=== PATIENT | female | born 1985 | race Two or more races ===

== ENCOUNTER 2019-07-27 11:29 | Emergency (ER) | payer MEDICAID ==
[~2019-07-27] VITALS: Ht 160 cm; Wt 70.3 kg
[2019-07-27 11:47] VITALS: BP 115/66
[2019-07-27 12:42] LABS: Urine Bacteria NONE SEEN /hpf (None Seen); Urine Blood 1+ /uL (Negative); Urine Mucus FEW (None Seen); Urine Specific Gravity 1.018 (1.001-1.035); Urine WBC 1 /hpf (0 - 5)
[2019-07-27 13:19] LABS: Basophils # (auto) 0 uL; Basophils % (auto) 0.5 % (0.0-2.0); Eosinophils # (auto) 0.4 uL; Eosinophils % (auto) 3.8 % (0.0-7.0); Hematocrit 40.8 % (36.0-46.0); Hemoglobin 13.4 g/dL (12.2-16.2); Lymphocytes # (auto) 1.4 uL; Lymphocytes % (auto) 14.3 % (10.0-50.0); Mean Corpuscular Hemoglobin 28.6 pg (28.0-32.0); Mean Corpuscular Hgb Conc. 32.9 g/dL (32.0-36.0); Monocytes # (auto) 0.4 uL; Monocytes % (auto) 4.3 % (0.0-12.0); Neutrophils # (auto) 7.5 uL; Neutrophils % (auto) 77.1 % (37.0-80.0); Platelet Count (auto) 258 10^3/uL (140-450); Red Blood Cells 4.69 10^6/uL (4.0-5.20); Red Cell Distribution Width 13.8 % (11.8-14.3); White Blood Cell 9.7 10^3/uL (4.4-10.8)
[2019-07-27 13:37] LABS: Albumin 3.8 g/dL (3.4-5.0); Calcium 8.6 mg/dL (8.5-10.1); Potassium 4.2 mmol/L (3.5-5.1)
[2019-07-27 13:40] LABS: BUN/Creatinine Ratio 8.7; Bilirubin, Total 0.3 mg/dL (0.2-1.0); Total Protein 7.6 g/dL (6.4-8.2)
[2019-07-27] MEDS ORDERED: MORPHINE SULFATE 4 MG/ML SYR/VIAL IV ONE (15:00)
[2019-07-27] MEDS ORDERED: ONDANSETRON HCL 4 MG/2 ML VIAL IV ONE (15:00)
== END 2019-07-27 15:34 | disposition home or self-care (01) ==
LOC: ER 11:29
DX: N35.92 Unspecified urethral stricture, female (principal)
CPT/HCPCS: 36415; 74176; 80053; 81001; 81025; 85025; 96374; 96375; 99284; J2270; J2405

== ENCOUNTER 2020-02-13 16:57 | Emergency (ER) | payer MEDICAID, OTHER ==
[~2020-02-13] VITALS: Ht 167.6 cm; Wt 77.1 kg
[2020-02-13 20:34] VITALS: BP 118/71
[2020-02-13] MEDS ORDERED: methylPREDNISolone SOD SUCC 125 MG/2 ML VL IM ONE (20:45)
[2020-02-13] MEDS ORDERED: KETOROLAC TROMETH 60MG/2ML VIAL IM ONE (20:45)
== END 2020-02-13 20:55 | disposition home or self-care (01) ==
LOC: ER 16:57
DX: M19.072 Primary osteoarthritis, left ankle and foot (principal); M19.071 Primary osteoarthritis, right ankle and foot; F41.9 Anxiety disorder, unspecified; N39.0 Urinary tract infection, site not specified
CPT/HCPCS: 96372; 99284; J1885; J2930

== ENCOUNTER 2020-04-13 18:40 | Emergency (ER) | payer OTHER ==
[~2020-04-13] VITALS: Ht 167.6 cm; Wt 68.0 kg
[2020-04-13 18:59] VITALS: BP 115/78
[2020-04-13] MEDS ORDERED: KETOROLAC TROMETH 60MG/2ML VIAL IM ONE (20:30)
[2020-04-13] MEDS ORDERED: SODIUM CHLORIDE 0.9% 1,000 ML IV ONE (21:00)
[2020-04-13 22:42] LABS: Urine Bacteria NONE SEEN /hpf (None Seen); Urine Blood 2+ /uL (Negative); Urine Mucus FEW (None Seen); Urine WBC 3 /hpf (0 - 5)
== END 2020-04-13 23:03 | disposition home or self-care (01) ==
LOC: ER 18:40
DX: F43.9 Reaction to severe stress, unspecified (principal); E86.0 Dehydration; Z56.3 Stressful work schedule
CPT/HCPCS: 81001; 96360; 96372; 99283; J1885; J7030

== ENCOUNTER 2021-01-11 00:22 | Emergency (ER) | payer OTHER ==
[~2021-01-11] VITALS: Ht 165.1 cm; Wt 80.3 kg
[2021-01-11 01:40] LABS: Basophils # (auto) 0.1 10 ^3/uL (0-0.2); Basophils % (auto) 0.6 % (0.0-2.0); Eosinophils # (auto) 0.4 10 ^3/uL (0-0.8); Hematocrit 36.3 % (36.0-46.0); Hemoglobin 11.9 g/dL (12.2-16.2); Lymphocytes # (auto) 2.2 10 ^3/uL (0.4-5.4); Lymphocytes % (auto) 25.7 % (10.0-50.0); Mean Corpuscular Hemoglobin 28.2 pg (28.0-32.0); Mean Corpuscular Hgb Conc. 32.9 g/dL (32.0-36.0); Mean Corpuscular Volume 85.7 fL (80.0-100.0); Monocytes # (auto) 0.5 10 ^3/uL (0-1.3); Monocytes % (auto) 5.2 % (0.0-12.0); Neutrophils # (auto) 5.5 10 ^3/uL (1.6-8.6); Neutrophils % (auto) 63.5 % (37.0-80.0); Platelet Count (auto) 225 10^3/uL (140-450); Red Blood Cells 4.23 10^6/uL (4.0-5.20); Red Cell Distribution Width 14.4 % (11.8-14.3); White Blood Cell 8.7 10^3/uL (4.4-10.8)
[2021-01-11 01:58] LABS: Alanine Aminotransferase 12 U/L (13-56); Albumin 3.4 g/dL (3.4-5.0); Anion Gap 6 (5-15); Aspartate Aminotransferase 9 U/L (15-37); BUN/Creatinine Ratio 12.8; Blood Urea Nitrogen 10 mg/dL (7-18); Calcium 7.7 mg/dL (8.5-10.1); Carbon Dioxide 25 mmol/L (21-32); Chloride 111 mmol/L (98-107); GFR African American 107 mL/min; GFR Non-African American 89 mL/min; Glucose 83 mg/dL (74-106); Lipase 128 U/L (73-393); Magnesium 2.1 mg/dL (1.6-2.6); Potassium 3.7 mmol/L (3.5-5.1); Sodium 142 mmol/L (136-145)
[2021-01-11 02:03] LABS: Alkaline Phosphatase 58 U/L (45-117); Bilirubin, Total 0.3 mg/dL (0.2-1.0); Total Protein 6.5 g/dL (6.4-8.2)
[2021-01-11] MEDS ORDERED: MORPHINE SULFATE 4 MG/ML SYR/VIAL IV ONE (02:15)
[2021-01-11] MEDS ORDERED: ONDANSETRON HCL 4 MG/2 ML VIAL IV ONE (02:15)
[2021-01-11 02:34] LABS: INR 1.06 (0.9-1.15); Partial Thromboplastin Time 25.1 sec (23.0-31.2)
[2021-01-11 04:04] LABS: Urine Bacteria FEW /hpf (None Seen); Urine Blood 1+ /uL (Negative); Urine Specific Gravity 1.013 (1.001-1.035); Urine WBC 3 /hpf (0 - 5)
[2021-01-11] MEDS ORDERED: HYDROcodone-ACET 10/325MG TAB PO ONE (05:00)
[2021-01-11 05:23] VITALS: BP 107/53
== END 2021-01-11 05:24 | disposition home or self-care (01) ==
LOC: EDBD 00:22 → ER 00:24
DX: K80.20 Calculus of gallbladder without cholecystitis without obstruction (principal); N83.201 Unspecified ovarian cyst, right side; M32.9 Systemic lupus erythematosus, unspecified
CPT/HCPCS: 36415; 74176; 76830; 76856; 80053; 81001; 83605; 83690; 83735; 84484; 84702; 85025; 85610; 85730; 87086; 96374; 96375; 99285; J2270; J2405

== ENCOUNTER 2021-04-15 16:57 | Emergency (ER) | payer OTHER ==
[~2021-04-15] VITALS: Ht 167.6 cm; Wt 77.1 kg
[2021-04-15 21:36] LABS: Basophils # (auto) 0 10 ^3/uL (0-0.2); Basophils % (auto) 0.2 % (0.0-2.0); Eosinophils # (auto) 0.3 10 ^3/uL (0-0.8); Eosinophils % (auto) 1.9 % (0.0-7.0); Hematocrit 37.3 % (36.0-46.0); Hemoglobin 12.5 g/dL (12.2-16.2); Lymphocytes # (auto) 1.8 10 ^3/uL (0.4-5.4); Lymphocytes % (auto) 12.2 % (10.0-50.0); Mean Corpuscular Hemoglobin 28.4 pg (28.0-32.0); Mean Corpuscular Hgb Conc. 33.5 g/dL (32.0-36.0); Mean Corpuscular Volume 84.8 fL (80.0-100.0); Monocytes # (auto) 0.7 10 ^3/uL (0-1.3); Monocytes % (auto) 4.5 % (0.0-12.0); Neutrophils % (auto) 81.2 % (37.0-80.0); Red Blood Cells 4.39 10^6/uL (4.0-5.20); Red Cell Distribution Width 13.6 % (11.8-14.3); White Blood Cell 14.7 10^3/uL (4.4-10.8)
[2021-04-15 21:44] LABS: Albumin 3.9 g/dL (3.4-5.0); Calcium 8.4 mg/dL (8.5-10.1); INR 1.18 (0.9-1.15); Magnesium 2.2 mg/dL (1.6-2.6); Potassium 4.3 mmol/L (3.5-5.1)
[2021-04-15 21:47] LABS: BUN/Creatinine Ratio 15.1; Bilirubin, Total 0.4 mg/dL (0.2-1.0); Total Protein 7.7 g/dL (6.4-8.2)
[2021-04-15] MEDS ORDERED: IOHEXOL 300 MG/ML 100ML BOTTLE IJ ONE (22:18)
[2021-04-16 01:28] LABS: Urine Bacteria NONE SEEN /hpf (None Seen); Urine Blood Negative /uL (Negative); Urine Specific Gravity 1.015 (1.001-1.035); Urine WBC 3 /hpf (0 - 5)
[2021-04-16] MEDS ORDERED: fentaNYL CITRATE 100 MCG/2 ML VL IV ONE (01:30)
[2021-04-16] MEDS ORDERED: ONDANSETRON HCL 4 MG/2 ML VIAL IV ONE (01:30)
[2021-04-16] MEDS: PIPERACILLIN-TAZOB 3.375GM 100 ML IV ONE ×2 (02:30→03:03)
[2021-04-16 02:40] VITALS: BP 140/85
== END 2021-04-16 03:10 | disposition left against medical advice (07) ==
LOC: ER 16:57 → EDBD 16:57 → ER 04-16 03:10
DX: N73.9 Female pelvic inflammatory disease, unspecified (principal); Z20.822 Contact with and (suspected) exposure to COVID-19
CPT/HCPCS: 36415; 74177; 80053; 81001; 83605; 83735; 84702; 85025; 85610; 87426; 96374; 96375; 99285; J2405; J2543; J3010; Q9967

== ENCOUNTER 2021-05-19 04:07 | Emergency (ER) | payer OTHER ==
[~2021-05-19] VITALS: Ht 172.7 cm; Wt 77.1 kg
[2021-05-19 05:35] LABS: Basophils # (auto) 0.1 10 ^3/uL (0-0.2); Basophils % (auto) 0.8 % (0.0-2.0); Eosinophils # (auto) 0.1 10 ^3/uL (0-0.8); Eosinophils % (auto) 1.2 % (0.0-7.0); Hematocrit 36.2 % (36.0-46.0); Hemoglobin 11.9 g/dL (12.2-16.2); Mean Corpuscular Hemoglobin 27.5 pg (28.0-32.0); Mean Corpuscular Volume 83.3 fL (80.0-100.0); Monocytes # (auto) 0.4 10 ^3/uL (0-1.3); Monocytes % (auto) 5.3 % (0.0-12.0); Neutrophils # (auto) 6.2 10 ^3/uL (1.6-8.6); Neutrophils % (auto) 79.7 % (37.0-80.0); Red Blood Cells 4.34 10^6/uL (4.0-5.20); Red Cell Distribution Width 13.8 % (11.8-14.3); White Blood Cell 7.7 10^3/uL (4.4-10.8)
[2021-05-19 05:49] LABS: Urine Bacteria FEW /hpf (None Seen); Urine Blood Negative /uL (Negative); Urine Specific Gravity 1.013 (1.001-1.035); Urine WBC 8 /hpf (0 - 5)
[2021-05-19 05:53] LABS: Albumin 2.9 g/dL (3.4-5.0); Amylase 55 U/L (25-115); Anion Gap 5 (5-15); Blood Urea Nitrogen 6 mg/dL (7-18); Calcium 7.9 mg/dL (8.5-10.1); Carbon Dioxide 23 mmol/L (21-32); Chloride 113 mmol/L (98-107); Glucose 87 mg/dL (74-106); Lipase 141 U/L (73-393); Potassium 3.9 mmol/L (3.5-5.1); Sodium 141 mmol/L (136-145)
[2021-05-19 05:58] LABS: Alanine Aminotransferase 71 U/L (13-56); Alkaline Phosphatase 59 U/L (45-117); Aspartate Aminotransferase 43 U/L (15-37); BUN/Creatinine Ratio 9.5; Bilirubin, Total 0.4 mg/dL (0.2-1.0); GFR African American 138 mL/min; GFR Non-African American 114 mL/min; Total Protein 6.6 g/dL (6.4-8.2)
[2021-05-19 06:22] VITALS: BP 95/62
== END 2021-05-19 10:04 | disposition home or self-care (01) ==
LOC: ER 04:07 → EDBD 04:07 → ER 09:58
DX: N80.9 Endometriosis, unspecified (principal); R10.84 Generalized abdominal pain; Z20.822 Contact with and (suspected) exposure to COVID-19
CPT/HCPCS: 36415; 74176; 80053; 81001; 82150; 83605; 83690; 84484; 85025; 87040; 87426

== ENCOUNTER 2023-11-25 14:53 | Inpatient (IN) | payer OTHER ==
[~2023-11-25] VITALS: Ht 170.2 cm; Wt 86.0 kg
[2023-11-25 15:55] LABS: Urine Bacteria NONE SEEN /hpf (None Seen); Urine Blood 3+ /uL (Negative); Urine Clarity Clear (Clear); Urine Color PINK (Yellow); Urine Mucus FEW (None Seen); Urine Protein, UAD 1+ (Negative); Urine Specific Gravity 1.016 (1.001-1.035); Urine Urobilinogen Normal (Negative); Urine WBC 128 /hpf (0 - 5); Urine pH 5.5 (5.0-8.0)
[2023-11-25 16:39] LABS: Basophils # (auto) 0 10 ^3/uL (0-0.2); Basophils % (auto) 0.4 % (0.0-2.0); Eosinophils # (auto) 0.3 10 ^3/uL (0-0.8); Eosinophils % (auto) 3.3 % (0.0-7.0); Hematocrit 34.5 % (36.0-46.0); Hemoglobin 10.9 g/dL (12.2-16.2); Lymphocytes # (auto) 1.6 10 ^3/uL (0.4-5.4); Lymphocytes % (auto) 16.3 % (10.0-50.0); Mean Corpuscular Hemoglobin 25.9 pg (28.0-32.0); Mean Corpuscular Hgb Conc. 31.7 g/dL (32.0-36.0); Mean Corpuscular Volume 81.6 fL (80.0-100.0); Monocytes # (auto) 0.6 10 ^3/uL (0-1.3); Monocytes % (auto) 6.2 % (0.0-12.0); Neutrophils # (auto) 7.4 10 ^3/uL (1.6-8.6); Neutrophils % (auto) 73.8 % (37.0-80.0); Red Blood Cells 4.23 10^6/uL (4.0-5.20); Red Cell Distribution Width 15.4 % (11.8-14.3)
[2023-11-25 16:56] LABS: Alanine Aminotransferase 13 U/L (7-40); Albumin 4.5 g/dL (3.2-4.8); Alkaline Phosphatase 96 U/L (46-116); Anion Gap 8 (5-15); Aspartate Aminotransferase 18 U/L (13-40); BUN/Creatinine Ratio 9.3 (10.0-20.0); Bilirubin, Total 0.4 mg/dL (0.2-1.0); Blood Urea Nitrogen 15 mg/dL (9-23); Carbon Dioxide 22 mmol/L (20-30); Chloride 107 mmol/L (98-107); Glucose 89 mg/dL (74-106); Potassium 4.3 mmol/L (3.5-5.1); Sodium 137 mmol/L (136-145); Total Protein 7.2 g/dL (5.7-8.2)
[2023-11-25] MEDS ORDERED: cefTRIAXone 1GM/50ML D5W 50 ML IV ONE (19:30)
[2023-11-25] MEDS ORDERED: ONDANSETRON HCL 4 MG/2 ML VIAL IV PRN (20:45)
[2023-11-26] VITALS (8 sets, daily range): BP systolic 111–133; BP diastolic 65–87; PULSE 75–87; RESP 16–18; TEMP 97.4–98.2; O2SAT 98–100
[2023-11-26] MEDS: ACETAMINOPHEN 325 MG TAB PO ONE (01:10)
[2023-11-26] MEDS: cefTRIAXone 1GM/50ML D5W 50 ML IV ONE (01:16)
[2023-11-26 06:10] LABS: Basophils # (auto) 0.1 10 ^3/uL (0-0.2); Basophils % (auto) 0.7 % (0.0-2.0); Eosinophils # (auto) 0.3 10 ^3/uL (0-0.8); Eosinophils % (auto) 4.7 % (0.0-7.0); Hematocrit 32.7 % (36.0-46.0); Hemoglobin 10.5 g/dL (12.2-16.2); Lymphocytes # (auto) 2.2 10 ^3/uL (0.4-5.4); Lymphocytes % (auto) 29.3 % (10.0-50.0); Mean Corpuscular Hgb Conc. 32.1 g/dL (32.0-36.0); Monocytes # (auto) 0.6 10 ^3/uL (0-1.3); Monocytes % (auto) 7.8 % (0.0-12.0); Neutrophils # (auto) 4.3 10 ^3/uL (1.6-8.6); Neutrophils % (auto) 57.5 % (37.0-80.0); Nucleated Red Blood Cells % 0.1 %; Red Blood Cells 4.03 10^6/uL (4.0-5.20); Red Cell Distribution Width 15.7 % (11.8-14.3); White Blood Cell 7.4 10^3/uL (4.4-10.8)
[2023-11-26 06:30] LABS: Albumin 4.1 g/dL (3.2-4.8); Alkaline Phosphatase 87 U/L (46-116); Anion Gap 7 (5-15); Aspartate Aminotransferase 15 U/L (13-40); BUN/Creatinine Ratio 9.9 (10.0-20.0); Blood Urea Nitrogen 16 mg/dL (9-23); Carbon Dioxide 22 mmol/L (20-30); Chloride 110 mmol/L (98-107); Glucose 81 mg/dL (74-106); Potassium 3.9 mmol/L (3.5-5.1); Sodium 139 mmol/L (136-145)
[2023-11-26 06:31] LABS: Alanine Aminotransferase < 9 U/L (7-40); Bilirubin, Total 0.5 mg/dL (0.2-1.0); Total Protein 6.5 g/dL (5.7-8.2)
[2023-11-26] MEDS: ACETAMINOPHEN 325 MG TAB PO PRN (11:20)
[2023-11-26] MEDS: cefTRIAXone 1GM/50ML D5W 50 ML IV SCH (14:56)
[2023-11-26] MEDS: TEMAZEPAM 15 MG CAP PO ONE (20:45)
[2023-11-27 05:00] VITALS: BP 115/62; PULSE 85; RESP 17; TEMP 98.5; O2SAT 100
[2023-11-27 05:51] LABS: Basophils # (auto) 0 10 ^3/uL (0-0.2); Basophils % (auto) 0.5 % (0.0-2.0); Eosinophils # (auto) 0.3 10 ^3/uL (0-0.8); Eosinophils % (auto) 5.7 % (0.0-7.0); Hematocrit 30.4 % (36.0-46.0); Hemoglobin 9.9 g/dL (12.2-16.2); Lymphocytes # (auto) 1.6 10 ^3/uL (0.4-5.4); Lymphocytes % (auto) 28.4 % (10.0-50.0); Mean Corpuscular Hemoglobin 26.2 pg (28.0-32.0); Mean Corpuscular Hgb Conc. 32.5 g/dL (32.0-36.0); Mean Corpuscular Volume 80.5 fL (80.0-100.0); Monocytes # (auto) 0.4 10 ^3/uL (0-1.3); Monocytes % (auto) 6.8 % (0.0-12.0); Neutrophils # (auto) 3.3 10 ^3/uL (1.6-8.6); Neutrophils % (auto) 58.6 % (37.0-80.0); Nucleated Red Blood Cells % 0.1 %; Red Blood Cells 3.77 10^6/uL (4.0-5.20); Red Cell Distribution Width 15.3 % (11.8-14.3); White Blood Cell 5.7 10^3/uL (4.4-10.8)
[2023-11-27 06:23] LABS: Albumin 3.9 g/dL (3.2-4.8); Alkaline Phosphatase 79 U/L (46-116); Anion Gap 8 (5-15); Aspartate Aminotransferase 15 U/L (13-40); BUN/Creatinine Ratio 15.3 (10.0-20.0); Bilirubin, Total 0.3 mg/dL (0.2-1.0); Blood Urea Nitrogen 23 mg/dL (9-23); Calcium 8.8 mg/dL (8.5-10.1); Carbon Dioxide 21 mmol/L (20-30); Chloride 111 mmol/L (98-107); Glucose 91 mg/dL (74-106); Potassium 4.2 mmol/L (3.5-5.1); Sodium 140 mmol/L (136-145); Total Protein 6.1 g/dL (5.7-8.2)
[2023-11-27 06:28] LABS: Alanine Aminotransferase < 9 U/L (7-40)
[2023-11-27 08:00] VITALS: BP 130/81; PULSE 74; RESP 18; TEMP 98.4; O2SAT 96
[2023-11-27 08:51] LABS: INR 1.05 (0.9-1.15); Partial Thromboplastin Time 32.6 SEC (24.5-34.5)
[2023-11-27 09:00] VITALS: BP 130/81; PULSE 52; RESP 17; TEMP 98.4; O2SAT 96
[2023-11-27] MEDS: DOCUSATE SOD 100 MG CAP PO PRN (09:09)
[2023-11-27 13:00] VITALS: BP 128/85; PULSE 79; RESP 18; TEMP 98.3; O2SAT 99
[2023-11-27] MEDS: HYDROcodone-ACET 5/325MG TAB PO PRN (13:08)
[2023-11-27 17:00] VITALS: BP_SYST 131; BP_SYST 92; BP_DIAS 51; BP_DIAS 85; PULSE 88; PULSE 89; RESP 16; RESP 18; TEMP 98.9; O2SAT 96; O2SAT 97
[2023-11-27 22:00] VITALS: BP 134/78; PULSE 96; RESP 20; TEMP 97.9; O2SAT 97
[2023-11-28] VITALS (9 sets, daily range): BP systolic 97–137; BP diastolic 70–90; PULSE 68–98; RESP 13–20; TEMP 98–98.8; O2SAT 95–100
[2023-11-28 06:19] LABS: Basophils # (auto) 0 10 ^3/uL (0-0.2); Lymphocytes # (auto) 1.8 10 ^3/uL (0.4-5.4); Monocytes # (auto) 0.4 10 ^3/uL (0-1.3); White Blood Cell 5.6 10^3/uL (4.4-10.8)
[2023-11-28 06:22] LABS: Basophils % (auto) 0.8 % (0.0-2.0); Eosinophils # (auto) 0.3 10 ^3/uL (0-0.8); Hematocrit 31.4 % (36.0-46.0); Hemoglobin 10.1 g/dL (12.2-16.2); Lymphocytes % (auto) 32.5 % (10.0-50.0); Mean Corpuscular Hemoglobin 25.9 pg (28.0-32.0); Mean Corpuscular Hgb Conc. 32.3 g/dL (32.0-36.0); Mean Corpuscular Volume 80.4 fL (80.0-100.0); Monocytes % (auto) 6.9 % (0.0-12.0); Neutrophils % (auto) 53.8 % (37.0-80.0); Red Cell Distribution Width 15.6 % (11.8-14.3)
[2023-11-28 06:31] LABS: Albumin 3.9 g/dL (3.2-4.8); Alkaline Phosphatase 76 U/L (46-116); Anion Gap 5 (5-15); Aspartate Aminotransferase 14 U/L (13-40); Bilirubin, Total 0.4 mg/dL (0.2-1.0); Blood Urea Nitrogen 18 mg/dL (9-23); Calcium 8.8 mg/dL (8.5-10.1); Carbon Dioxide 23 mmol/L (20-30); Chloride 112 mmol/L (98-107); Glucose 88 mg/dL (74-106); Potassium 4.3 mmol/L (3.5-5.1); Sodium 140 mmol/L (136-145); Total Protein 6.3 g/dL (5.7-8.2)
[2023-11-28 06:34] LABS: Alanine Aminotransferase < 9 U/L (7-40)
[2023-11-28] MEDS: FUROSEMIDE 40 MG/4 ML VIAL IV ONE (10:20)
[2023-11-28] MEDS: LIDOCAINE 2%HCL (LOCAL ANESTH.) INJ 20ML MDV ONE (14:26)
[2023-11-28] MEDS: IODIXANOL 320MG/ML 100ML BTL IV ONE ×2 (14:26→14:27)
[2023-11-28] MEDS: cefTRIAXone 1GM/50ML D5W 50 ML IV ONE (14:27)
[2023-11-28] MEDS: MIDAZOLAM HCL 2MG/2ML 2ml VIAL (1mg/ml) ONE (14:27)
[2023-11-28] MEDS: fentaNYL CITRATE 100 MCG/2 ML VL ONE (14:27)
[2023-11-29 05:04] VITALS: BP 143/96; PULSE 92; RESP 22; TEMP 97.9; O2SAT 97
[2023-11-29 06:16] LABS: Basophils # (auto) 0 10 ^3/uL (0-0.2); Basophils % (auto) 0.3 % (0.0-2.0); Eosinophils # (auto) 0.1 10 ^3/uL (0-0.8); Monocytes # (auto) 0.5 10 ^3/uL (0-1.3)
[2023-11-29 06:18] LABS: Eosinophils % (auto) 1.8 % (0.0-7.0); Hematocrit 34.3 % (36.0-46.0); Hemoglobin 11.3 g/dL (12.2-16.2); Lymphocytes # (auto) 1.8 10 ^3/uL (0.4-5.4); Lymphocytes % (auto) 22.9 % (10.0-50.0); Mean Corpuscular Hemoglobin 26.2 pg (28.0-32.0); Mean Corpuscular Hgb Conc. 32.8 g/dL (32.0-36.0); Monocytes % (auto) 6.3 % (0.0-12.0); Neutrophils # (auto) 5.3 10 ^3/uL (1.6-8.6); Neutrophils % (auto) 68.7 % (37.0-80.0); Red Blood Cells 4.29 10^6/uL (4.0-5.20); Red Cell Distribution Width 15.4 % (11.8-14.3); White Blood Cell 7.7 10^3/uL (4.4-10.8)
[2023-11-29 06:26] LABS: Albumin 4.4 g/dL (3.2-4.8); Alkaline Phosphatase 82 U/L (46-116); Anion Gap 7 (5-15); Aspartate Aminotransferase 13 U/L (13-40); BUN/Creatinine Ratio 10.2 (10.0-20.0); Blood Urea Nitrogen 17 mg/dL (9-23); Carbon Dioxide 26 mmol/L (20-30); Chloride 105 mmol/L (98-107); Glucose 89 mg/dL (74-106); Potassium 3.7 mmol/L (3.5-5.1); Sodium 138 mmol/L (136-145)
[2023-11-29 06:27] LABS: Bilirubin, Total 0.5 mg/dL (0.2-1.0); Total Protein 7.3 g/dL (5.7-8.2)
[2023-11-29 06:30] LABS: Alanine Aminotransferase < 9 U/L (7-40)
[2023-11-29 09:00] VITALS: BP 128/86; PULSE 85; RESP 16; TEMP 98.1; O2SAT 98
[2023-11-29 13:00] VITALS: BP 100/66; PULSE 89; RESP 18; TEMP 97.7; O2SAT 98
[2023-11-29 17:00] VITALS: BP 127/90; PULSE 78; RESP 18; TEMP 98.2; O2SAT 92
[2023-11-29 22:56] VITALS: BP 131/89; PULSE 97; RESP 18; TEMP 98.8; O2SAT 99
[2023-11-30 05:00] VITALS: BP 121/77; PULSE 101; RESP 17; TEMP 98.4; O2SAT 97
[2023-11-30 06:21] LABS: Basophils # (auto) 0 10 ^3/uL (0-0.2); Hemoglobin 11.3 g/dL (12.2-16.2); Lymphocytes # (auto) 1.3 10 ^3/uL (0.4-5.4); Mean Corpuscular Hgb Conc. 32.5 g/dL (32.0-36.0); Monocytes # (auto) 0.7 10 ^3/uL (0-1.3); Neutrophils # (auto) 6.4 10 ^3/uL (1.6-8.6)
[2023-11-30 06:24] LABS: Basophils % (auto) 0.5 % (0.0-2.0); Eosinophils # (auto) 0.1 10 ^3/uL (0-0.8); Eosinophils % (auto) 1.7 % (0.0-7.0); Hematocrit 34.6 % (36.0-46.0); Lymphocytes % (auto) 15.5 % (10.0-50.0); Monocytes % (auto) 7.9 % (0.0-12.0); Neutrophils % (auto) 74.4 % (37.0-80.0); Nucleated Red Blood Cells % 0.2 %; Red Blood Cells 4.32 10^6/uL (4.0-5.20); Red Cell Distribution Width 15.4 % (11.8-14.3); White Blood Cell 8.6 10^3/uL (4.4-10.8)
[2023-11-30 06:30] LABS: Anion Gap 8 (5-15); Carbon Dioxide 25 mmol/L (20-30); Chloride 102 mmol/L (98-107); Potassium 3.8 mmol/L (3.5-5.1); Sodium 135 mmol/L (136-145)
[2023-11-30 06:32] LABS: Calcium 9.4 mg/dL (8.7-10.4)
[2023-11-30 06:36] LABS: BUN/Creatinine Ratio 10.7 (10.0-20.0); Blood Urea Nitrogen 16 mg/dL (9-23); Glucose 103 mg/dL (74-106)
[2023-11-30 06:37] LABS: Magnesium 1.5 mg/dL (1.6-2.6)
[2023-11-30 09:00] VITALS: BP 113/77; PULSE 112; RESP 18; TEMP 98; O2SAT 95
[2023-11-30 13:00] VITALS: BP 120/82; PULSE 106; RESP 18; TEMP 98.5; O2SAT 94
[2023-11-30 17:00] VITALS: BP 115/83; PULSE 103; RESP 18; TEMP 97.8; O2SAT 96
[2023-11-30 22:00] VITALS: BP 123/83; PULSE 105; RESP 18; TEMP 97.9; O2SAT 97
[2023-12-01 01:56] LABS: INR 1.07 (0.9-1.15); Partial Thromboplastin Time 33.8 SEC (24.5-34.5); Prothrombin Time 11.2 sec (9.3-11.8)
[2023-12-01 05:00] VITALS: BP 110/76; PULSE 87; RESP 18; TEMP 98; O2SAT 97
[2023-12-01 05:49] LABS: Basophils # (auto) 0 10 ^3/uL (0-0.2); Basophils % (auto) 0.5 % (0.0-2.0); Eosinophils # (auto) 0.3 10 ^3/uL (0-0.8); Hemoglobin 11.1 g/dL (12.2-16.2); Lymphocytes # (auto) 1.6 10 ^3/uL (0.4-5.4); Lymphocytes % (auto) 19.5 % (10.0-50.0); Mean Corpuscular Hemoglobin 26.3 pg (28.0-32.0); Mean Corpuscular Hgb Conc. 32.8 g/dL (32.0-36.0); Mean Corpuscular Volume 80.1 fL (80.0-100.0); Monocytes # (auto) 0.7 10 ^3/uL (0-1.3); Neutrophils # (auto) 5.6 10 ^3/uL (1.6-8.6); Red Blood Cells 4.24 10^6/uL (4.0-5.20); Red Cell Distribution Width 15.4 % (11.8-14.3); White Blood Cell 8.2 10^3/uL (4.4-10.8)
[2023-12-01 05:54] LABS: Alanine Aminotransferase 10 U/L (7-40); Albumin 4.2 g/dL (3.2-4.8); Alkaline Phosphatase 78 U/L (46-116); Anion Gap 6 (5-15); Aspartate Aminotransferase 26 U/L (13-40); BUN/Creatinine Ratio 9.4 (10.0-20.0); Blood Urea Nitrogen 13 mg/dL (9-23); Calcium 9.3 mg/dL (8.5-10.1); Carbon Dioxide 26 mmol/L (20-30); Chloride 105 mmol/L (98-107); Glucose 94 mg/dL (74-106); Potassium 3.7 mmol/L (3.5-5.1); Sodium 137 mmol/L (136-145)
[2023-12-01 05:55] LABS: Bilirubin, Total 0.4 mg/dL (0.2-1.0); Total Protein 6.8 g/dL (5.7-8.2)
[2023-12-01] MEDS: IOHEXOL 300 MG/ML 100ML BOTTLE IJ ONE (07:38)
[2023-12-01 08:00] VITALS: BP 112/83; PULSE 95; RESP 18; TEMP 97.9; O2SAT 96
[2023-12-01 10:54] LABS: Urine Bacteria NONE SEEN /hpf (None Seen); Urine Blood 3+ /uL (Negative); Urine Clarity HAZY (Clear); Urine Color PINK (Yellow); Urine Protein, UAD 2+ (Negative); Urine Specific Gravity 1.019 (1.001-1.035); Urine Urobilinogen Normal (Negative); Urine WBC 343 /hpf (0 - 5); Urine WBC Clumps PRESENT /hpf (None Seen)
[2023-12-01 12:56] VITALS: BP 129/91; PULSE 80; RESP 16; TEMP 98; O2SAT 99
[2023-12-01] MEDS: CIPROFLOXACIN 400MG/200ML 200 ML IV ONE (14:14)
[2023-12-01] MEDS ORDERED: fentaNYL CITRATE 100 MCG/2 ML VL ONE (14:15)
[2023-12-01] MEDS ORDERED: PROPOFOL 10 MG/ML 20 ML IV ONE (14:42)
[2023-12-01] MEDS ORDERED: DexAMETHasone SOD PHOS 10MG/1ML VIAL INJ ONE (14:58)
[2023-12-01] MEDS ORDERED: ONDANSETRON HCL 4 MG/2 ML VIAL ONE (14:58)
[2023-12-01] MEDS ORDERED: ePHEDrine SULFATE 50 MG/ML AMP ONE (15:10)
[2023-12-01] MEDS ORDERED: diphenhdrAMINE HCL 50 MG/1 ML VL ONE (15:33)
[2023-12-01 15:37] VITALS: PULSE 92; RESP 12; O2SAT 98
[2023-12-01] MEDS ORDERED: ONDANSETRON HCL 4 MG/2 ML VIAL IV PRN (15:45)
[2023-12-01] MEDS ORDERED: MEPERIDINE HCL (25 MG/ML) 1ML VIAL IV PRN (15:45)
[2023-12-01] MEDS: HYDROmorphone HCL 2 MG/ML VL/or syr ONE (16:20)
[2023-12-01] MEDS: HYDROmorphone HCL 2 MG/ML VL/or syr IV PRN (16:42)
[2023-12-01 17:05] VITALS: BP 118/80; PULSE 90; RESP 16; TEMP 98; O2SAT 97
[2023-12-01 22:00] VITALS: BP 117/72; PULSE 103; RESP 16; TEMP 97.2; O2SAT 93
[2023-12-02 05:00] VITALS: BP 102/68; PULSE 102; RESP 16; TEMP 97.7; O2SAT 93
[2023-12-02 06:35] LABS: Basophils # (auto) 0 10 ^3/uL (0-0.2); Eosinophils # (auto) 0 10 ^3/uL (0-0.8); Hemoglobin 11.1 g/dL (12.2-16.2); Monocytes # (auto) 0.2 10 ^3/uL (0-1.3); White Blood Cell 9.9 10^3/uL (4.4-10.8)
[2023-12-02 06:38] LABS: Basophils % (auto) 0.1 % (0.0-2.0); Eosinophils % (auto) 0.1 % (0.0-7.0); Hematocrit 33.8 % (36.0-46.0); Lymphocytes # (auto) 0.7 10 ^3/uL (0.4-5.4); Lymphocytes % (auto) 6.6 % (10.0-50.0); Mean Corpuscular Hemoglobin 26.3 pg (28.0-32.0); Mean Corpuscular Hgb Conc. 32.9 g/dL (32.0-36.0); Mean Corpuscular Volume 80.1 fL (80.0-100.0); Monocytes % (auto) 1.5 % (0.0-12.0); Neutrophils % (auto) 91.7 % (37.0-80.0); Nucleated Red Blood Cells % 0.1 %; Red Blood Cells 4.22 10^6/uL (4.0-5.20)
[2023-12-02 06:54] LABS: Alanine Aminotransferase 27 U/L (7-40); Albumin 4.6 g/dL (3.2-4.8); Alkaline Phosphatase 89 U/L (46-116); Anion Gap 9 (5-15); Aspartate Aminotransferase 28 U/L (13-40); BUN/Creatinine Ratio 12.7 (10.0-20.0); Bilirubin, Total 0.4 mg/dL (0.2-1.0); Blood Urea Nitrogen 19 mg/dL (9-23); Calcium 9.5 mg/dL (8.5-10.1); Carbon Dioxide 24 mmol/L (20-30); Chloride 102 mmol/L (98-107); Glucose 126 mg/dL (74-106); Potassium 4.4 mmol/L (3.5-5.1); Sodium 135 mmol/L (136-145); Total Protein 7.5 g/dL (5.7-8.2)
[2023-12-02 07:07] LABS: Immunoglobulin G, Serum 1128 mg/dL (586-1602)
[2023-12-02 08:00] VITALS: PULSE 82; RESP 19; O2SAT 96
[2023-12-02 08:31] VITALS: BP 101/71; PULSE 82; RESP 19; TEMP 98.9; O2SAT 92
[2023-12-02] MEDS ORDERED: CIPR-173 PO (11:23)
[2023-12-02 12:06] VITALS: BP 116/73; PULSE 92; RESP 18; TEMP 97.9; O2SAT 96
[2023-12-02 12:30] VITALS: BP 116/73; PULSE 92; RESP 18; TEMP 97.5; O2SAT 96
[2023-12-02 16:06] LABS: Anti-Centromere B Antibody <0.2 AI (0.0-0.9); Anti-Jo-1 Antibody <0.2 AI (0.0-0.9); Anti-dsDNA Antibody 1 IU/mL (0-9); Antichromatin Antibody <0.2 AI (0.0-0.9); Antiscleroderma-70 Antibody <0.2 AI (0.0-0.9); RNP Antibody 0.2 AI (0.0-0.9); Sjogren's Anti-SS-A Antibody <0.2 AI (0.0-0.9); Sjogren's Anti-SS-B Antibody <0.2 AI (0.0-0.9); Smith Antibody <0.2 AI (0.0-0.9)
== END 2023-12-02 15:48 | disposition home or self-care (01) | DRG 463 ==
LOC: ER 14:53 → OVERFLOW 20:55 → EAST 11-26 02:44
PROVIDERS: ADMIT Internal Medicine Pulmonary Disease; ATTEND Internal Medicine Pulmonary Disease
PROC: 0T9130Z Drainage of Left Kidney with Drainage Device, Percutaneous Approach (ICD-10-PCS; principal; 2023-11-28)
PROC: 0T778DZ Dilation of Left Ureter with Intraluminal Device, Via Natural or Artificial Opening Endoscopic (ICD-10-PCS; 2023-12-01)
PROC: BT1F1ZZ Fluoroscopy of Left Kidney, Ureter and Bladder using Low Osmolar Contrast (ICD-10-PCS; 2023-12-01)
DX: N13.6 Pyonephrosis (principal); N17.9 Acute kidney failure, unspecified; K80.20 Calculus of gallbladder without cholecystitis without obstruction; M32.9 Systemic lupus erythematosus, unspecified; R31.0 Gross hematuria; N18.32 Chronic kidney disease, stage 3b; N83.292 Other ovarian cyst, left side; N83.291 Other ovarian cyst, right side; Z82.49 Family history of ischemic heart disease and other diseases of the circulatory system; N35.92 Unspecified urethral stricture, female
CPT/HCPCS: 36415; 50432; 71045; 74018; 74176; 74181; 74425; 76000; 76775; 76856; 76942; 78707; 80048; 80053; 81001; 82784; 83516; 83735; 84702; 85025; 85610; 85730; 86225; 86235; 86304; 86850; 86900; 86901; 87086; 93005; 99152; G0378; J1100; J2250; J2405; J2704; Q9967

== ENCOUNTER 2024-06-25 07:13 | Emergency (ER) | payer MEDICAID, OTHER ==
[~2024-06-25] VITALS: Ht 165.1 cm; Wt 85.2 kg
[~2024-06-25 07:13] MED LIST: CIPR-173 PO
[2024-06-25 08:04] VITALS: BP 126/86; PULSE 99; RESP 16; O2SAT 98
[2024-06-25 08:53] LABS: Urine Bacteria FEW /hpf (None Seen); Urine Blood 1+ /uL (Negative); Urine Protein, UAD Negative (Negative); Urine Specific Gravity 1.009 (1.001-1.035); Urine Urobilinogen Normal (Negative); Urine WBC 14 /hpf (0 - 5)
[2024-06-25 08:54] LABS: Urine Clarity Hazy (Clear); Urine Color Light-Yellow (Yellow)
[2024-06-25 09:03] VITALS: TEMP 98.5
[2024-06-25] MEDS: cefTRIAXone SOD 1,000 MG VL IM ONE (09:03)
[2024-06-25] MEDS: ACETAMINOPHEN 500 MG TAB PO ONE (09:03)
[2024-06-25] MEDS ORDERED: ACET-1080 PO (09:16)
[2024-06-25] MEDS ORDERED: BACDST PO (09:16)
== END 2024-06-25 09:25 | disposition home or self-care (01) ==
LOC: ER 07:13
DX: N39.0 Urinary tract infection, site not specified (principal); Z32.02 Encounter for pregnancy test, result negative
CPT/HCPCS: 81001; 81025; 96372; 99283; J0696

== ENCOUNTER 2024-08-30 15:34 | Inpatient (IN) | payer MEDICAID ==
[~2024-08-30] VITALS: Ht 162.6 cm; Wt 88.0 kg
[~2024-08-30 15:34] MED LIST changes: +ACET-1080 PO; +BACDST PO
--- NOTE | 2024-08-30 17:30 | ED.PDOC ---
General HPI Comments HPI: Poor Historian. 38-year-old female presents to the emergency department for left flank pain for the last three months that radiates to the left groin area. Patient had a stent placed there approximately nine months ago. She was contacted by her urologist today who told her that your stent that was thought to have been removed in your left kidney is still present and needs to come out. Patient complains of worsening pain on her left flank region. Patient states having painful urination. Past Medcial History: Kidney stones, hypertension not on medications Past Surgical History: Left renal stent placement, hysterectomy REVIEW OF SYSTEMS: CONSTITUTIONAL: Denies acute: fever, diaphoresis, chills, generalized weakness. HEAD: Denies acute: headache, photophobia Eyes: Denies acute: Double vision, vision loss, eye pain, eye discharge. EARS: Denies acute: tinnitus, hearing loss, ear discharge, ear pain, THROAT: Denies acute: sore throat, swelling, difficulty swallowing , pain with swallowing, change in voice. NECK: Denies acute: neck pain, neck swelling, stiff neck. HEART: Denies acute : chest pain, palpitations, LUNGS: Denies acute: SOB, wheezing, cough, hemoptysis ABDOMEN: Denies acute: diarrhea, melena , hematemesis, hematochezia SKIN: Denies acute: rash, redness, lesions, itchiness. EXTREMITIES: Denies acute: calf pain, numbness, tingling, weakness, denies pain in extremity. Denies acute: Low back pain. Neuro: Denies acute: focal neurological deficit, motor or sensory focal neurological deficit, tremors, seizure like activity, confusion, dizziness, change in mental status, loss of bowel or bladder function, cauda equina like symptoms. : Denies acute: hematuria, increase in urinary frequency. PSYCH: Denies acute: hallucination, suicidal ideation, homicidal ideation. FEMALE: Denies acute: abnormal vaginal bleeding, foul odor, unusual discharge. PHYSICAL EXAM: General: no acute distress, awake and alert. Head: normocephalic, atraumatic. Neck: supple, trachea is midline, no swelling. Throat: Normal phonation. Eyes:, no erythema, no purulent discharge, no proptosis, no icterus. Heart: regular rate, regular rhythm, no significant murmur appreciated. Lungs: no apparent respiratory distress, Able to speak in full sentences. No wheezing, no rhonchi, no crackles. No stridors Clear to auscultation bilaterally. Abdomen: Left lower quadrant tender to palpation, non distended, soft, no guarding, no rebound, + bowel sounds. Neuro: Awake, Alert, oriented to name, self, situation, follows commands GCS=15. Speech is normal. Skin: no petechia, no purpura, no cyanosis, non-pale, not jaundice. Lower extremities: --no - Pitting edema no deformity, no focal swelling, no calf TTP. Makes eye contact. moves all four extremities. Face: no apparent facial droop. Left CVA tenderness to percussion Ambulating in the ED independently. . Chief Complaint: Flank Pain Time Seen by MD: 16:03 Primary Care Provider: KWAME Reviewed notes: Nurses Notes, Medications, Allergies Allergies: Coded Allergies: NO KNOWN ALLERGIES (Unverified , 07/27/19) Home Meds Active Scripts Acetaminophen (Tylenol 8 Hour Arthritis) 650 Mg Tab, 650 MG PO TID, #30 TAB Prov:KAYY CHRISTIANSON 06/25/24 Sulfamethoxazole W/Trimethopri (Bactrim Ds Tablet) 1 Tab Tb, 1 TAB PO BID for 7 Days, #14 TAB Prov:KAYY CHRISTIANSON 06/25/24 Ciprofloxacin Hcl (Cipro) 500 Mg Tab, 1 TAB PO BID, #14 TAB Prov:SAMI TERRELL RESIDENT 12/02/23 Information Source: Patient Mode of Arrival: Ambulatory Past Medical History PAST MEDICAL HISTORY: CKF, UTI'S 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 Family History Family History: Reviewed,noncontributory to illness, No family hx of Cancer, No family hx of DM, No family hx of Heart jose, No family hx of HTN Social History Smoker: Non-Smoker Alcohol: Occasionally Drugs: Denies Drug Use Lives In: Home X-Ray, Labs, Meds, VS Vital Signs Date Time Temp Pulse Resp B/P (MAP) Pulse Ox O2 Delivery O2 Flow Rate FiO2 08/30/24 15:45 98.9 120 16 139/81 (100) 99 Lab Test 08/30/24 18:33 08/30/24 17:14 Range/Units White Blood Count Pending Red Blood Count Pending Hemoglobin Pending Hematocrit Pending Mean Corpuscular Volume Pending Mean Corpuscular Hemoglobin Pending Mean Corpuscular Hemoglobin Concent Pending Red Cell Distribution Width Pending Platelet Count Pending Mean Platelet Volume Pending Neutrophils (%) (Auto) Pending Lymphocytes (%) (Auto) Pending Monocytes (%) (Auto) Pending Basophils (%) (Auto) Pending Neutrophils # (Auto) Pending Lymphocytes # (Auto) Pending Monocytes # (Auto) Pending Sodium Level Pending Potassium Level Pending Chloride Level Pending Carbon Dioxide Level Pending Anion Gap Pending Blood Urea Nitrogen Pending Creatinine Pending Glomerular Filtration Rate Calc Pending BUN/Creatinine Ratio Pending Serum Glucose Pending Lactic Acid Level Pending Calcium Level Pending Total Bilirubin Pending Aspartate Amino Transferase (AST) Pending Alanine Aminotransferase (ALT) Pending Alkaline Phosphatase Pending Total Protein Pending Albumin Pending Urine Color Light-yellow Yellow Urine Clarity Clear Clear Urine pH 7.0 5.0-9.0 Urine Specific [place] 1.013 1.001-1.035 Urine Protein Trace H Negative Urine Ketones Negative Negative Urine Blood Trace H Negative /uL Urine Nitrite Negative Negative Urine Bilirubin Negative Negative Urine Urobilinogen Normal Negative mg/dL Urine Leukocyte Esterase 2+ Negative /uL Urine RBC 10 0 - 4 /hpf Urine WBC 6 0 - 5 /hpf Urine Squamous Epithelial Cells Few <5 /hpf Urine Bacteria Few H None Seen /hpf Urine Glucose Normal Normal mg/dL Time of 1ST Reevaluation: 19:50 (The case was discussed with the admitting team (HPI, physical exam, labs and diagnostic tests that were available at the time of disposition, ED course, treatment plan) on the phone. They agreed to admit the patient to their service and assume care of this patient from this point forward. JANN Lopez) Reevaluation 1ST: Unchanged Patient Education/Counseling: Diagnosis, Treatment Family Education/Counseling: No Family Present Departure 1 Departure Time of Disposition: 18:46 Impression: Primary Impression: Hydronephrosis Additional Impressions: UTI (urinary tract infection) Abnormal finding on CT scan Disposition: ADMITTED INPATIENT Admit to: Tele Condition: Guarded Discharged With: Self RUFINO LOVE DO Aug 30, 2024 17:30
[2024-08-30 17:32] LABS: Urine Bacteria FEW /hpf (None Seen); Urine Blood TRACE /uL (Negative); Urine Clarity Clear (Clear); Urine Color Light-Yellow (Yellow); Urine Protein, UAD TRACE (Negative); Urine Specific Gravity 1.013 (1.001-1.035); Urine Urobilinogen Normal (Negative); Urine WBC 6 /hpf (0 - 5)
--- NOTE | 2024-08-30 18:03 | DVH ---
Exam: CT CT AB PEL WO CON-NO ORAL OR IV History: L FLANK PAIN Comparison Study: CT CT AB PEL WO CON-NO ORAL OR IV on DOS: 11/25/23, CT ABD PELVIS WO CONTRAST on DOS : 05/19/21, CT ABD PELVIS WO CONTRAST on DOS: 01/11/21 Technique: Multidetector spiral CT of the abdomen and pelvis was performed from lung bases to pubic symphysis. Imaging was performed without IV contrast. Axial, coronal and sagittal multiplanar reform ats were obtained from the axial data set by the technologist. Radiation dose : Abdomen/Pelvis: CTDIvol 14 mGy, DLP 744.6 mGy*cm. Findings: Evaluation of solid organs is limited due to lack of intravenous contrast use. Lung Bases: No acute or significant lung base finding. Normal heart size. No pleural or pericardial effusion. Liver: The liver is normal in size. No focal lesions. Gallbladder and biliary Tree: Cholelithiasis noted without secondary findings of cholecystitis or reji iary obstruction. Spleen: Unremarkable Pancreas: The pancreas is grossly normal in appearance. Adrenal Glands: Unremarkable Kidneys: Severe left hydronephrosis. Double-J ureteral stent in place. Distal coil does not reach th e bladder and is coiled in the distal ureter. Chronic severe right hydronephrosis with near complete loss of renal cortex. Bladder: Grossly unremarkable for degree of distention. Bowel: The stomach is grossly normal in appearance. Small bowel and colon are normal in caliber and d istribution. The appendix is not visualized; however, no secondary findings of acute appendicitis id entified. Ascites: Absent Lymphadenopathy: No mesenteric, retroperitoneal or periportal lymphadenopathy. Abdominal wall and Mesentery: Unremarkable. Vasculature: The visualized abdominal aorta is normal in size and caliber. Evaluation of abdominal a nd pelvic vessels is limited due to lack of intravenous contrast. Pelvic Organs: Uterus is enlarged with likely fibroids. There is a low-density structure projecting o ff the uterus measuring up to 65 mm which could be a fibroid or other mass. Left ovary appears promin ent measuring up to 38 mm. Musculoskeletal: No aggressive focal bony lesions, acute fractures or dislocation. IMPRESSION: 1. Severe left hydronephrosis. Double-J ureteral stent in place although distal coil does not reach t he bladder. Likely needs to be replaced with a longer double-J ureteral stent. Urology evaluation is recommended. However given that the double-J stent does not reach the bladder it may need to be remov ed and replaced from above. 2. Enlarged heterogeneous uterus. Suspect fibroids. Hypodense lesion projecting off the uterus could be a fibroid or other mass. Prominent left ovary. Recommend further evaluation with pelvic ultrasou nd and/or pelvic MRI with contrast. 3. Cholelithiasis. Chronic severe right hydronephrosis. Radiation optimization: All CT scans at this facility use at least one of these dose optimization aldo hniques: Automated exposure control mA and/or kV adjustment per patient size (includes targeted exams where dose is matched to clinical indication) or iterative reconstruction. HS:Y
[2024-08-30] MEDS ORDERED: ACETAMINOPHEN 325 MG TAB PO PRN (20:00)
[2024-08-30] MEDS ORDERED: HYDROcodone-ACET 5/325MG TAB PO PRN (20:00)
[2024-08-30] MEDS ORDERED: ONDANSETRON HCL 4 MG/2 ML VIAL IV PRN (20:00)
[2024-08-30 20:04] LABS: Basophils # (auto) 0 10 ^3/uL (0-0.2); Basophils % (auto) 0.4 % (0.0-2.0); Eosinophils # (auto) 0.5 10 ^3/uL (0-0.8); Eosinophils % (auto) 6.1 % (0.0-7.0); Hematocrit 39.6 % (36.0-46.0); Hemoglobin 12.4 g/dL (12.2-16.2); Lymphocytes # (auto) 2.1 10 ^3/uL (0.4-5.4); Lymphocytes % (auto) 23.7 % (10.0-50.0); Mean Corpuscular Hemoglobin 23.4 pg (28.0-32.0); Mean Corpuscular Hgb Conc. 31.4 g/dL (32.0-36.0); Mean Corpuscular Volume 74.4 fL (80.0-100.0); Monocytes # (auto) 0.5 10 ^3/uL (0-1.3); Monocytes % (auto) 6.1 % (0.0-12.0); Neutrophils # (auto) 5.6 10 ^3/uL (1.6-8.6); Neutrophils % (auto) 63.7 % (37.0-80.0); Platelet Count (auto) 278 10^3/uL (140-450); Red Blood Cells 5.33 10^6/uL (4.0-5.20); Red Cell Distribution Width 18.2 % (11.8-14.3); White Blood Cell 8.9 10^3/uL (4.4-10.8)
[2024-08-30 20:14] LABS: Alanine Aminotransferase 15 U/L (7-40); Albumin 4.7 g/dL (3.2-4.8); Alkaline Phosphatase 84 U/L (46-116); Anion Gap 7 (5-15); Aspartate Aminotransferase 18 U/L (13-40); BUN/Creatinine Ratio 15.6 (10.0-20.0); Blood Urea Nitrogen 17 mg/dL (9-23); Calcium 10.1 mg/dL (8.7-10.4); Carbon Dioxide 23 mmol/L (20-31); Chloride 107 mmol/L (98-107); Glucose 87 mg/dL (74-106); Potassium 4.5 mmol/L (3.5-5.1); Sodium 137 mmol/L (136-145)
[2024-08-30 20:15] LABS: Bilirubin, Total 0.3 mg/dL (0.2-1.0); Total Protein 7.3 g/dL (5.7-8.2)
--- NOTE | 2024-08-30 23:04 | DVH ---
INDICATION: recommended on CT TECHNIQUE: Multiple real-time grayscale transabdominal sonographic images along with color and duplex Doppler of the uterus and ovaries were obtained. COMPARISON: US PELVIC on DOS: 11/25/23 FINDINGS: The uterus measures 8.52 x 7.86 x 5.87 cm. cm. The endometrial stripe measures 14.1 mm. The re is an intramural mass in the uterine fundus measuring 4.23 x 4.13 x 3.61 cm consistent with a fibr oid. The right ovary not visualized. There is a complex mass in the right adnexa measuring 5.24 x 6.67 x 5.21 cm. Recommend follow-up study. The left ovary measures 4.39 x 4.58 x 4.16 cm. Left ovarian volume is 43.75 cc. There is a heterogen eous mass in the left ovary measuring 3.9 x 2.79 x 3.78 cm. Subsequent color and duplex Doppler interrogation of the ovaries demonstrated symmetric vascular flow to both ovaries, though this does not exclude the possibility of torsion due to the dual blood suppl y. IMPRESSION: 1. A solid uterine fibroid in the fundus measuring 4.23 x 4.13 x 3.61 cm. 2. Heterogeneous mass in the left ovary measuring 3.95 by 2.99 x 3.68 cm recommend follow-up study . 3. Complex mass right adnexa measuring 5.24 x 6.67 x 5.21 cm recommend follow-up study.
[2024-08-31 00:04] LABS: INR 1.08 (0.9-1.15); Prothrombin Time 11.4 sec (9.3-11.8)
[2024-08-31 00:07] VITALS: PULSE 91; RESP 18; O2SAT 98
[2024-08-31] MEDS: SODIUM CHLORIDE 0.9% 1,000 ML IV ONE (00:47)
[2024-08-31] MEDS: cefTRIAXone 1GM/50ML D5W 50 ML IV ONE (00:47)
--- NOTE | 2024-08-31 00:49 | DVHHP2 ---
Admitting Diagnosis: Bilateral hydronephrosis, UTI, ovarian mass History of Present Illness History Source: Patient Exam Limitations: No limitations HPI Mrs. Annabelle Jarquin is a 38-year-old female with a history of kidney stones, hypertension, endometriosis, left kidney stent presents with a chief complaint of left flank pain for the last three months. Patient had a stent placed to her left kidney approximately nine months ago. She was contacted by her urologist who told her the stent that was thought to not be there any longer to left kidney is still present and needs removal, patient reports she was waiting for a referral however steven pain has worsened and she could not wait. Patient complains of worsening pain on her left flank region. Patient admitted for further evaluation. Home Meds Active Scripts Acetaminophen (Tylenol 8 Hour Arthritis) 650 Mg Tab, 650 MG PO TID, #30 TAB Prov:KAYY CHRISTIANSON 06/25/24 Past Medical History Cardiac: HTN Pulmonary: No pertinent Hx Central Nervous System: No pertinent Hx GI: No pertinent Hx Hemotology/Oncology: No pertinent Hx Hepatobiliary: No pertinent Hx Psychiatric: No pertinent Hx Musculoskeletal: No pertinent Hx Rheumotologic: No pertinent Hx Infectious Disease: No peritnent Hx ENT: No pertinent Hx Renal/: UTI, Other (kidney stones with renal stent placement) Endocrine: No pertinent Hx Dermatology: No pertinent Hx Patient Family History: FH: hypertension FH: stomach ulcer Smoker: No Hx (Negative) Alocohol: None Drugs: None Lives with: With family Domestic Violence: Neg Review of Systems Constitutional: No symptom reported Ears, Nose, & Throat: No symptom reported Eyes: No symptom reported Pulmonary/Respiratory: No symptom reported Cardiovascular: No symptom reported Gastrointestinal: No symptom reported Genitourinary: No symptom reported Musculoskeletal: No symptom reported Skin: No symptom reported Psychiatric: No symptom reported Endocrine: No symptom reported Hemotologic/Lymphatic: No symptom reported All Other Systems left flank pain H&P Exam Vital Signs Vital Signs Date Time Temp Pulse Resp B/P (MAP) Pulse Ox O2 Delivery O2 Flow Rate FiO2 08/31/24 00:07 98.5 93 18 116/80 (92) 100 98.5 08/31/24 00:07 Room Air* 0 21 General Appeara: Well developed, Well nourished, Normal Appearance Head Exam: Normal inspection Neck Exam: Normal inspection, Non-tender, Normal alignment Eye Exam: bilateral eye Normal inspection, bilateral eye PERRL, bilateral eye EOMI Ear Exam: bilateral ear Auricle normal Nasal Exam: Normal inspection Mouth: Normal Inspection Pulmonary/Respiratory: Normal inspection, Normal breath sounds, Chest non- tender, Lungs clear Cardiovascular/Chest: Normal inspection, Regular rate, Normal Rhythm Peripheral Pulses: 2+ dorsalis pedis (R), 2+ dorsalis pedis (L), 2+ Radial (R), 2+ Radial (L) Abdominal Exam: Normal bowel sounds, Soft, No tenderness Abdominal Pain Onset Location: Flank (left flank pain) Rectal Exam: Deferred Back Exam: Left CVA tenderness Pelvic Exam: 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: Normal hearing, Normal speech, PERRL Neuro/Mental St: Alert, Oriented Appearance: Appropriate appearance, Appropriate insight Eye contact/ Speech: Cooperative, Good eye contact, Normal speech Thoughts/Psych: Normal thought pattern Skin Exam: Normal inspection, Normal color, Warm/dry Labs/Xrays Labs Test 08/30/24 23:38 08/30/24 18:33 08/30/24 17:14 Range/Units Prothrombin Time 11.4 9.3-11.8 sec Prothrombin Time INR 1.08 0.9-1.15 White Blood Count 8.9 4.4-10.8 10^3/uL Red Blood Count 5.33 H 4.0-5.20 10^6/uL Hemoglobin 12.4 12.2-16.2 g/dL Hematocrit 39.6 36.0-46.0 % Mean Corpuscular Volume 74.4 L 80.0-100.0 fL Mean Corpuscular Hemoglobin 23.4 L 28.0-32.0 pg Mean Corpuscular Hemoglobin Concent 31.4 L 32.0-36.0 g/dL Red Cell Distribution Width 18.2 H 11.8-14.3 % Platelet Count 278 140-450 10^3/uL Mean Platelet Volume 8.3 6.9-10.8 fL Neutrophils (%) (Auto) 63.7 37.0-80.0 % Lymphocytes (%) (Auto) 23.7 10.0-50.0 % Monocytes (%) (Auto) 6.1 0.0-12.0 % Eosinophils (%) (Auto) 6.1 0.0-7.0 % Basophils (%) (Auto) 0.4 0.0-2.0 % Neutrophils # (Auto) 5.6 1.6-8.6 10 ^3/uL Lymphocytes # (Auto) 2.1 0.4-5.4 10 ^3/uL Monocytes # (Auto) 0.5 0-1.3 10 ^3/uL Eosinophils # (Auto) 0.5 0-0.8 10 ^3/uL Basophils # (Auto) 0 0-0.2 10 ^3/uL Nucleated Red Blood Cells 0.0 % Sodium Level 137 136-145 mmol/L Potassium Level 4.5 3.5-5.1 mmol/L Chloride Level 107 98-107 mmol/L Carbon Dioxide Level 23 20-31 mmol/L Anion Gap 7 5-15 Blood Urea Nitrogen 17 9-23 mg/dL Creatinine 1.09 H 0.550-1.02 mg/dL Glomerular Filtration Rate Calc 66 >90 mL/min BUN/Creatinine Ratio 15.6 10.0-20.0 Serum Glucose 87 74-106 mg/dL Lactic Acid Level 1.4 0.4-2.0 mmol/L Calcium Level 10.1 8.7-10.4 mg/dL Total Bilirubin 0.3 0.2-1.0 mg/dL Aspartate Amino Transferase (AST) 18 13-40 U/L Alanine Aminotransferase (ALT) 15 7-40 U/L Alkaline Phosphatase 84 46-116 U/L Total Protein 7.3 5.7-8.2 g/dL Albumin 4.7 3.2-4.8 g/dL Urine Color Light-yellow Yellow Urine Clarity Clear Clear Urine pH 7.0 5.0-9.0 Urine Specific [place] 1.013 1.001-1.035 Urine Protein Trace H Negative Urine Ketones Negative Negative Urine Blood Trace H Negative /uL Urine Nitrite Negative Negative Urine Bilirubin Negative Negative Urine Urobilinogen Normal Negative mg/dL Urine Leukocyte Esterase 2+ Negative /uL Urine RBC 10 0 - 4 /hpf Urine WBC 6 0 - 5 /hpf Urine Squamous Epithelial Cells Few <5 /hpf Urine Bacteria Few H None Seen /hpf Urine Glucose Normal Normal mg/dL Urine Test Negative Negative Assessment/Plan Problem List: (1) UTI (urinary tract infection) (2) Hydronephrosis (3) Abnormal finding on CT scan (4) Ovarian tumor Plan 38 yo female with known history of kidney stones, left renal stent placement, hypertension, and endometriosis presents to the hospital with left flank pain. Patient CT abdomen and pelvis resulted 1. Severe left hydronephrosis. Double-J ureteral stent in place although distal coil does not reach the bladder. Likely needs to be replaced with a longer double-J ureteral stent. Urology evaluation is recommended. However given that the double-J stent does not reach the bladder it may need to be removed and replaced from above. 2. Enlarged heterogeneous uterus. Suspect fibroids. Hypodense lesion projecting off the uterus could be a fibroid or other mass. Prominent left ovary. Recommend further evaluation with pelvic ultrasound and/or pelvic MRI with contrast.3. Cholelithiasis. Chronic severe right hydronephrosis. Patient found to have 1. Bilateral hydronephrosis 2. Ovarian cyst 3. left renal stent 4. 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 All questions were answered. Discussed assessment and care plan with supervising MD. Plan discussed with: Patient, Other Code Visit Code Visit Total Time (mins): 45 Additional Comments Additional Comments Additional Comments Patient is currently in OR, patient will be seen once she is on the floor. FELICIA WEBB Aug 31, 2024 00:49 ALLISON MÉNDEZ MD Aug 31, 2024 15:36
[2024-08-31] MEDS: MORPHINE SULFATE INJ 2 MG/ml SYRG IV PRN (02:23)
[2024-08-31 05:53] LABS: Basophils # (auto) 0 10 ^3/uL (0-0.2); Hemoglobin 11.7 g/dL (12.2-16.2); Monocytes # (auto) 0.6 10 ^3/uL (0-1.3)
[2024-08-31 05:55] LABS: Basophils % (auto) 0.5 % (0.0-2.0); Eosinophils # (auto) 0.5 10 ^3/uL (0-0.8); Eosinophils % (auto) 6.1 % (0.0-7.0); Lymphocytes % (auto) 26.1 % (10.0-50.0); Mean Corpuscular Hemoglobin 23.3 pg (28.0-32.0); Mean Corpuscular Hgb Conc. 31.7 g/dL (32.0-36.0); Mean Corpuscular Volume 73.5 fL (80.0-100.0); Monocytes % (auto) 8.3 % (0.0-12.0); Neutrophils # (auto) 4.5 10 ^3/uL (1.6-8.6); Platelet Count (auto) 263 10^3/uL (140-450); Red Blood Cells 5.03 10^6/uL (4.0-5.20); White Blood Cell 7.7 10^3/uL (4.4-10.8)
[2024-08-31 06:03] LABS: Anion Gap 10 (5-15); Carbon Dioxide 24 mmol/L (20-31); Sodium 142 mmol/L (136-145)
[2024-08-31 06:04] LABS: Calcium 9.5 mg/dL (8.7-10.4)
[2024-08-31 06:09] LABS: BUN/Creatinine Ratio 12.4 (10.0-20.0); Blood Urea Nitrogen 13 mg/dL (9-23); Glucose 93 mg/dL (74-106)
[2024-08-31 06:14] LABS: Chloride 108 mmol/L (98-107)
--- NOTE | 2024-08-31 08:52 | DVHINCON2 ---
Date of service: Aug 31, 2024 Referring Physician hospitalist Reason for Consultation hydronephrosis History of Present Illness History Source: Patient, RN Notes, MD Notes, Old Records Exam Limitations: No limitations HPI 38 yo female known to urology service for left ureteral stricture and non functional right kidney (8%). She had the stent placed 11/2023 and came to the office for removal. Stent was not visualized during cystoscopy and patient felt it may have fallen out. Her repeat imaging (KUB)s showed stent remaining in place. She was pending scheduling for stent removal but began having left flank pain and elected to come to ER for evaluation. Home Meds Active Scripts Acetaminophen (Tylenol 8 Hour Arthritis) 650 Mg Tab, 650 MG PO TID, #30 TAB Prov:KAYY CHRISTIANSON 06/25/24 Past Medical History Others Cystoscopy with left ureteral stent placement in November 2023 s/p Left PNT Patient Family History: FH: hypertension FH: stomach ulcer Review of Systems Genitourinary: Pain (Flank pain) H&P Exam Vital Signs Vital Signs Date Time Temp Pulse Resp B/P (MAP) Pulse Ox O2 Delivery O2 Flow Rate FiO2 08/31/24 05:50 79 19 129/83 (98) 99 08/31/24 02:20 98.6 98.6 08/31/24 00:07 Room Air* 0 21 General Appeara: Mild distress Head Exam: Normal inspection Neck Exam: Normal inspection Pulmonary/Respiratory: Normal inspection Cardiovascular/Chest: Normal inspection Abdominal Pain Onset Location: Flank Back Exam: Left CVA tenderness Labs/Xrays Labs Test 08/31/24 05:30 08/30/24 23:38 08/30/24 18:33 08/30/24 17:14 Range/Units White Blood Count 7.7 4.4-10.8 10^3/uL Red Blood Count 5.03 4.0-5.20 10^6/uL Hemoglobin 11.7 L 12.2-16.2 g/dL Hematocrit 37.0 36.0-46.0 % Mean Corpuscular Volume 73.5 L 80.0-100.0 fL Mean Corpuscular Hemoglobin 23.3 L 28.0-32.0 pg Mean Corpuscular Hemoglobin Concent 31.7 L 32.0-36.0 g/dL Red Cell Distribution Width 18.0 H 11.8-14.3 % Platelet Count 263 140-450 10^3/uL Mean Platelet Volume 8.0 6.9-10.8 fL Neutrophils (%) (Auto) 59.0 37.0-80.0 % Lymphocytes (%) (Auto) 26.1 10.0-50.0 % Monocytes (%) (Auto) 8.3 0.0-12.0 % Eosinophils (%) (Auto) 6.1 0.0-7.0 % Basophils (%) (Auto) 0.5 0.0-2.0 % Neutrophils # (Auto) 4.5 1.6-8.6 10 ^3/uL Lymphocytes # (Auto) 2.0 0.4-5.4 10 ^3/uL Monocytes # (Auto) 0.6 0-1.3 10 ^3/uL Eosinophils # (Auto) 0.5 0-0.8 10 ^3/uL Basophils # (Auto) 0 0-0.2 10 ^3/uL Nucleated Red Blood Cells 0.0 % Sodium Level 142 # 136-145 mmol/L Potassium Level 4.0 3.5-5.1 mmol/L Chloride Level 108 H 98-107 mmol/L Carbon Dioxide Level 24 20-31 mmol/L Anion Gap 10 5-15 Blood Urea Nitrogen 13 9-23 mg/dL Creatinine 1.05 H 0.550-1.02 mg/dL Glomerular Filtration Rate Calc 69 >90 mL/min BUN/Creatinine Ratio 12.4 10.0-20.0 Serum Glucose 93 74-106 mg/dL Calcium Level 9.5 8.7-10.4 mg/dL Prothrombin Time 11.4 9.3-11.8 sec Prothrombin Time INR 1.08 0.9-1.15 Lactic Acid Level 1.4 0.4-2.0 mmol/L Total Bilirubin 0.3 0.2-1.0 mg/dL Aspartate Amino Transferase (AST) 18 13-40 U/L Alanine Aminotransferase (ALT) 15 7-40 U/L Alkaline Phosphatase 84 46-116 U/L Total Protein 7.3 5.7-8.2 g/dL Albumin 4.7 3.2-4.8 g/dL Urine Color Light-yellow Yellow Urine Clarity Clear Clear Urine pH 7.0 5.0-9.0 Urine Specific [place] 1.013 1.001-1.035 Urine Protein Trace H Negative Urine Ketones Negative Negative Urine Blood Trace H Negative /uL Urine Nitrite Negative Negative Urine Bilirubin Negative Negative Urine Urobilinogen Normal Negative mg/dL Urine Leukocyte Esterase 2+ Negative /uL Urine RBC 10 0 - 4 /hpf Urine WBC 6 0 - 5 /hpf Urine Squamous Epithelial Cells Few <5 /hpf Urine Bacteria Few H None Seen /hpf Urine Glucose Normal Normal mg/dL Urine Test Negative Negative PATIENT: CHRIS AARON ACCT: [id number] UNIT: [id number] : 1985 LOC: ER ROOM / BED: / AGE / SEX: 38 / F ADM STATUS: REG ER SERVICE [id number] ORDERING PHYSICIAN: RUFINO LOVE DO PROCEDURE(s): ABPL - CT AB PEL WO CON-NO ORAL OR IV REASON: L FLANK PAIN ORDER NUMBER(s): [id number], ACCESSION NUMBER(s): [id number] Exam: CT CT AB PEL WO CON-NO ORAL OR IV History: L FLANK PAIN Comparison Study: CT CT AB PEL WO CON-NO ORAL OR IV on DOS: 11/25/23, CT ABD PELVIS WO CONTRAST on DOS: 05/19/21, CT ABD PELVIS WO CONTRAST on DOS: 01/11/21 Technique: Multidetector spiral CT of the abdomen and pelvis was performed from lung bases to pubic symphysis. Imaging was performed without IV contrast. Axial, coronal and sagittal multiplanar reformats were obtained from the axial data set by the technologist. Radiation dose : Abdomen/Pelvis: CTDIvol 14 mGy, DLP 744.6 mGy*cm. Findings: Evaluation of solid organs is limited due to lack of intravenous contrast use. Lung Bases: No acute or significant lung base finding. Normal heart size. No pleural or pericardial effusion. Liver: The liver is normal in size. No focal lesions. Gallbladder and biliary Tree: Cholelithiasis noted without secondary findings of cholecystitis or biliary obstruction. Spleen: Unremarkable Pancreas: The pancreas is grossly normal in appearance. Adrenal Glands: Unremarkable Kidneys: Severe left hydronephrosis. Double-J ureteral stent in place. Distal coil does not reach the bladder and is coiled in the distal ureter. Chronic severe right hydronephrosis with near complete loss of renal cortex. Bladder: Grossly unremarkable for degree of distention. Bowel: The stomach is grossly normal in appearance. Small bowel and colon are normal in caliber and distribution. The appendix is not visualized; however, no secondary findings of acute appendicitis identified. Ascites: Absent Lymphadenopathy: No mesenteric, retroperitoneal or periportal lymphadenopathy. Abdominal wall and Mesentery: Unremarkable. Vasculature: The visualized abdominal aorta is normal in size and caliber. Evaluation of abdominal and pelvic vessels is limited due to lack of intravenous contrast. Pelvic Organs: Uterus is enlarged with likely fibroids. There is a low-density structure projecting off the uterus measuring up to 65 mm which could be a fibroid or other mass. Left ovary appears prominent measuring up to 38 mm. Musculoskeletal: No aggressive focal bony lesions, acute fractures or dislocation. IMPRESSION: 1. Severe left hydronephrosis. Double-J ureteral stent in place although distal coil does not reach the bladder. Likely needs to be replaced with a longer double-J ureteral stent. Urology evaluation is recommended. However given that the double-J stent does not reach the bladder it may need to be removed and replaced from above. 2. Enlarged heterogeneous uterus. Suspect fibroids. Hypodense lesion projecting off the uterus could be a fibroid or other mass. Prominent left ovary. Recommend further evaluation with pelvic ultrasound and/or pelvic MRI with contrast. 3. Cholelithiasis. Chronic severe right hydronephrosis. Radiation optimization: All CT scans at this facility use at least one of these dose optimization techniques: Automated exposure control mA and/or kV adjustment per patient size (includes targeted exams where dose is matched to clinical indication) or iterative reconstruction. 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
[2024-08-31 09:04] VITALS: PULSE 70; RESP 18; O2SAT 98
[2024-08-31 09:35] VITALS: BP 123/70; PULSE 76; RESP 20; TEMP 97.8; O2SAT 99
[2024-08-31] MEDS: cefTRIAXone 1GM/50ML D5W 50 ML IV SCH (10:07)
[2024-08-31] MEDS: PANTOPRAZOLE 40 MG/10 ML VIAL INJ IV SCH (10:07)
[2024-08-31 12:33] VITALS: BP 124/81; PULSE 86; RESP 18; TEMP 98.2; O2SAT 98
[2024-08-31] MEDS ORDERED: IOHEXOL 300 MG/ML 100ML BOTTLE IJ ONE (13:20)
[2024-08-31] MEDS ORDERED: GLYCOPYRROLATE 0.2 MG/ML 1ML VIAL ONE (13:31)
[2024-08-31] MEDS ORDERED: PROPOFOL 10 MG/ML 20 ML IV ONE (13:31)
[2024-08-31] MEDS ORDERED: KETOROLAC TROMETH 30 MG/ML 1ML VIAL ONE (13:31)
[2024-08-31] MEDS ORDERED: LIDOCAINE 2% (LOCAL ANESTH.) PF 5ml SDV ONE (13:31)
[2024-08-31] MEDS ORDERED: ONDANSETRON HCL 4 MG/2 ML VIAL ONE (13:31)
[2024-08-31] MEDS ORDERED: DexAMETHasone SOD PHOS 10MG/1ML VIAL INJ ONE (13:31)
[2024-08-31] MEDS: CIPROFLOXACIN 400MG/200ML 200 ML IV ONE (13:32)
--- NOTE | 2024-08-31 14:09 | DVHOP2 ---
Operative Report - 2 Report Details Date: 08/31/24 Preop Diagnosis: Indwelling left ureteral stent, migrated History of left distal ureteral stricture Left flank pain Postop Diagnosis: Same Surgeon: Marla Puente Anesthesiologist: Robert Manley CRNA Anesthesia: General Consent: The patient was informed of the risks and benefits of the procedure. These include but are not limited to complications of anesthesia, postoperative infection, incomplete relief of symptoms, recurrence of symptoms, damage to blood vessels, nerves and tendons, deep venous thrombosis, pulmonary embolism and possible need for repeat surgery in the future. Indications for Surgery: Patient previously underwent left ureteroscopic dilation of ureteral stricture and stent placement in November of 2023. She also is known to have nonfunctioning right kidney unit. Previous attempt to remove the stent was hindered by migrated ureteral stent. She is admitted for flank pain and will undergo ureteroscopic stent removal Name of Procedure Performed Left ureteroscopy with stent removal Procedure Details Procedure Details: Patient was taken to the operating room and underwent general anesthesia. She was placed in dorsal lithotomy position with the area of the genitalia prepped and draped in usual sterile manner. A semi-rigid ureteroscope was used to access the bladder and the left distal ureter. Distal ureteral stricture was identified and dilated with ureteroscope and advanced to identify the distal end of the stent. The stent was grasped with grasping forceps and removed. Bladder was decompressed. Patient was awakened and taken to recovery room in stable condition Specimen: Old ureteral stent Condition Fair Disposition Home MARLA PUENTE MD Aug 31, 2024 14:09
[2024-08-31 14:13] VITALS: TEMP 98.2; O2SAT 100
[2024-08-31] MEDS ORDERED: ONDANSETRON HCL 4 MG/2 ML VIAL IV PRN (14:30)
[2024-08-31] MEDS ORDERED: fentaNYL CITRATE 100 MCG/2 ML VL IV PRN (14:30)
[2024-08-31] MEDS ORDERED: FLUMAZENIL 0.1 MG/ML INJ 10ML MDV IV PRN (14:30)
[2024-08-31] MEDS ORDERED: oxyCODONE HCL 5MG TAB PO PRN (14:30)
[2024-08-31] MEDS ORDERED: ePHEDrine SULFATE 50 MG/ML AMP IV PRN (14:30)
[2024-08-31] MEDS ORDERED: NALOXONE HCL 0.4 MG/ML VIAL IV PRN (14:30)
[2024-08-31] MEDS ORDERED: hydrALAZINE HCL 20 MG/ML VL IV PRN (14:30)
[2024-08-31] MEDS ORDERED: HYDROmorphone HCL 2 MG/ML VL/or syr IV PRN (14:30)
--- NOTE | 2024-08-31 14:47 | DVH ---
C-ARM FLUOROSCOPY: PROCEDURE: R ureteroscopy FLUOROSCOPY TIME: 4 sec
--- NOTE | 2024-08-31 14:47 | DVH ---
C-ARM FLUOROSCOPY: PROCEDURE: R ureteroscopy FLUOROSCOPY TIME: 4 sec
[2024-08-31 16:45] VITALS: BP 131/69; PULSE 64; RESP 12; O2SAT 97
[2024-08-31] MEDS ORDERED: CEPH500C PO (17:00)
[2024-08-31] MEDS ORDERED: HYDR-4902 PO (17:00)
[2024-08-31] MEDS ORDERED: NALO4SPR2 (17:00)
[2024-08-31] MEDS ORDERED: KETAMINE 50mg/ML 1ml syringe IV ONE (23:29)
== END 2024-08-31 23:30 | disposition home or self-care (01) | DRG 466 ==
LOC: ER 15:34 → OVERFLOW 20:53
PROVIDERS: ADMIT Nurse Practitioner Family; ATTEND Nurse Practitioner Family
PROC: 0TP98DZ Removal of Intraluminal Device from Ureter, Via Natural or Artificial Opening Endoscopic (ICD-10-PCS; principal; 2024-08-31 13:32)
DX: T83.593A Infection and inflammatory reaction due to other urinary stents, initial encounter (principal); N13.6 Pyonephrosis; I10 Essential (primary) hypertension; N26.1 Atrophy of kidney (terminal); K80.20 Calculus of gallbladder without cholecystitis without obstruction; N83.202 Unspecified ovarian cyst, left side; Z82.49 Family history of ischemic heart disease and other diseases of the circulatory system
CPT/HCPCS: 36415; 74018; 74176; 76000; 76830; 76856; 80048; 80053; 81001; 81025; 83605; 85025; 85610; 87086; G0378; J1100; J1885; J2003; J2405; J2470; J2704

== ENCOUNTER 2024-11-18 13:27 | Inpatient (IN) | payer MEDICAID ==
[~2024-11-18] VITALS: Ht 170.2 cm; Wt 84.4 kg
[~2024-11-18 13:27] MED LIST changes: -BACDST PO; +CEPH500C PO; -CIPR-173 PO; +HYDR-4902 PO; +NALO4SPR2
--- NOTE | 2024-11-18 13:32 | ED.PDOC ---
History of Present Illness HPI Comments 38-year-old female brought by paramedics from home because of abdominal pain which started hour and a half ago. Patient states that abdominal pain started the right lower quadrant radiating to the back. Denies nausea vomiting diarrhea. She does state that she has fall smelling odor to the urine. She does have a history of kidney disease. Her blood pressure normalized after she had hydronephrosis of the right kidney resolved. Denies chest pain. Denies any other symptoms. 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, #2 SPRAY Prov:ALLISON MÉNDEZ MD 08/31/24 Hydrocodone-Acetaminophen (Hydrocodone Bitartrate/AC 5-325 mg) 1 Tab Tab, 1 TAB PO Q8HPRN PRN, #10 TAB Prov:ALLISON MÉNDEZ MD 08/31/24 Cephalexin Monohydrate (Cephalexin) 500 Mg Cap, 1 CAP PO TID for 7 Days, #21 CAP Prov:ALLISON MÉNDEZ MD 08/31/24 Acetaminophen (Tylenol 8 Hour Arthritis) 650 Mg Tab, 650 MG PO TID, #30 TAB Prov:KAYY CHRISTIANSON 06/25/24 Information Source: Patient, Emergency Med Personnel Mode of Arrival: EMS Severity: Moderate Timing: Hours Duration: Since onset Past Medical History PAST MEDICAL HISTORY: CKF, UTI'S 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 Family History Family History: Reviewed,noncontributory to illness, No family hx of Cancer, No family hx of DM, No family hx of Heart jose, No family hx of HTN Social History Smoker: Non-Smoker Alcohol: Occasionally Drugs: Denies Drug Use Lives In: Home Constitutional: denies: chills, diaphoresis, fatigue, fever, malaise, sweats, weakness, others EENTM: denies: blurred vision, double vision, ear bleeding, ear discharge, ear drainage, ear pain, ear ringing, eye pain, eye redness, hearing loss, mouth pain, mouth swelling, nasal discharge, nose bleeding, nose congestion, nose pain, photophobia, tearing, throat pain, throat swelling, voice changes, others Respiratory: denies: cough, hemoptysis, orthopnea, SOB at rest, shortness of breath, SOB with excertion, stridor, wheezing, others Cardiovascular: denies: chest pain, dizzy spells, diaphoresis, Dyspnea on exertion, edema, irregular heart beat, left arm pain, lightheadedness, palpitations, PND, syncope, others Gastrointestinal: reports: abdominal pain; denies: abdomen distended, blood streaked bowels, constipated, diarrhea, dysphagia, difficulty swallowing, hematemesis, melena, nausea, poor appetite, poor fluid intake, rectal bleeding, rectal pain, vomiting, others Genitourinary: denies: abnormal vagina bleeding, burning, dyspareunia, dysuria, flank pain, frequency, hematuria, incontinence, pain, , vagina discharge, urgency, others Neurological: denies: dizziness, fainting, headache, left sided numbness, left sided weakness, numbness, paresthesia, pre-existing deficit, right sided n umbness, right sided weakness, seizure, speech problems, tingling, tremors, weakness, others Musculoskeletal: denies: back pain, gout, joint pain, joint swelling, muscle pain, muscle stiffness, neck pain, others Integumetry: denies: bruises, change in color, change in hair/nails, dryness, laceration, lesions, lumps, rash, wounds, others Allergic/Immunocompromised: denies: Difficulty Healing, Frequent Infections, Hives, Itching, others Hematologic/Lymphatic: denies: anemia, blood clots, easy bleeding, easy bruising, swollen glands, others Endocrine: denies: excessive hunger, excessive sweating, excessive thirst, excessive urination, flushing, intolerance to cold, intolerance to heat, unexplained weight gain, unexplained weight loss, others Psychiatric: denies: anxiety, bipolar disorder, depression, hopeless, panic disorder, schizophrenia, sleepless, suicidal, others Physical Exam General Appearance: Moderate Distress HEENT: Normal ENT Inspection, Pharynx Normal, TMs Normal Neck: Full Range of Motion, Non-Tender, Normal, Normal Inspection Respiratory: Chest Non-Tender, Lungs Clear, No Accessory Muscle Use, No Respiratory Distress, Normal Breath Sounds Cardiovascular: No Edema, No JVD, No Murmur, No Gallop, Normal Peripheral Pulses, Regular Rate/Rhythm Breast Exam: Deferred Gastrointestinal: No Organomegaly, Non Tender, No Pulsatile Mass, Normal Bowel Sounds, Soft Genitalia: Deferred Pelvic: Deferred Rectal: Deferred Extremities: No calf tenderness, Normal capillary refill, Normal inspection, Normal range of motion, Non-tender, No pedal edema Musculoskeletal : Apperance: Normal 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 Was a procedure done?: No Differential Dx Considerations may include: Anemia Electrolyte imbalance X-Ray, Labs, Meds, VS Vital Signs Date Time Temp Pulse Resp B/P (MAP) Pulse Ox O2 Delivery O2 Flow Rate FiO2 11/18/24 14:29 79 18 99 Room Air 11/18/24 14:29 97.7 79 18 118/80 (93) 99 97.7 11/18/24 14:07 97.9 68 12 127/90 (102) 100 Lab Test 11/18/24 13:52 11/18/24 13:49 Range/Units White Blood Count 6.2 4.4-10.8 10^3/uL Red Blood Count 5.07 4.0-5.20 10^6/uL Hemoglobin 12.0 L 12.2-16.2 g/dL Hematocrit 38.0 36.0-46.0 % Mean Corpuscular Volume 75.1 L 80.0-100.0 fL Mean Corpuscular Hemoglobin 23.7 L 28.0-32.0 pg Mean Corpuscular Hemoglobin Concent 31.6 L 32.0-36.0 g/dL Red Cell Distribution Width 17.2 H 11.8-14.3 % Platelet Count 259 140-450 10^3/uL Mean Platelet Volume 8.2 6.9-10.8 fL Neutrophils (%) (Auto) 56.2 37.0-80.0 % Lymphocytes (%) (Auto) 31.7 10.0-50.0 % Monocytes (%) (Auto) 7.3 0.0-12.0 % Eosinophils (%) (Auto) 4.0 0.0-7.0 % Basophils (%) (Auto) 0.8 0.0-2.0 % Neutrophils # (Auto) 3.5 1.6-8.6 10 ^3/uL Lymphocytes # (Auto) 2.0 0.4-5.4 10 ^3/uL Monocytes # (Auto) 0.5 0-1.3 10 ^3/uL Eosinophils # (Auto) 0.3 0-0.8 10 ^3/uL Basophils # (Auto) 0.1 0-0.2 10 ^3/uL Nucleated Red Blood Cells 0.1 % Sodium Level 136 136-145 mmol/L Potassium Level 4.2 3.5-5.1 mmol/L Chloride Level 105 98-107 mmol/L Carbon Dioxide Level 22 20-31 mmol/L Anion Gap 9 5-15 Blood Urea Nitrogen 9 9-23 mg/dL Creatinine 0.99 0.550-1.02 mg/dL Glomerular Filtration Rate Calc 74 >90 mL/min BUN/Creatinine Ratio 9.1 L 10.0-20.0 Serum Glucose 91 74-106 mg/dL Calcium Level 9.7 8.7-10.4 mg/dL Urine Color Light-yellow Yellow Urine Clarity Clear Clear Urine pH 5.5 5.0-9.0 Urine Specific [place] 1.015 1.001-1.035 Urine Protein Negative Negative Urine Ketones Negative Negative Urine Blood 1+ H Negative /uL Urine Nitrite Negative Negative Urine Bilirubin Negative Negative Urine Urobilinogen Normal Negative mg/dL Urine Leukocyte Esterase Negative Negative /uL Urine RBC 4 0 - 4 /hpf Urine Microscopic WBC 2 0-5 /HPF Urine Squamous Epithelial Cells Mod <5 /hpf Urine Bacteria Few H None Seen /hpf Urine Hyaline Casts Few 0 - 2 /lpf Urine Glucose Normal Normal mg/dL Patient alert. Complaining of abdominal pain. Vitals stable. Answering questions. Abdomen is soft nontender. Denies nausea vomiting. Establish intravenous access. Was given fluids. Reviewed her history. Continue monitoring. On re-evaluation abdomen is soft nontender. Urinalysis shows mild UTI. Was given prescription of Macrobid antibiotic. No sign of distress. No sepsis. CT scan of the abdomen was not done because physical examination was pristine. Urinalysis shows mild blood. Possibly passage of kidney stone. She is not in pain. Comfortable. Watched her for many hours in the ER. No distress. Explained to the patient. Patient continues to have abdominal pain. CT scan of the abdomen reveals hydronephrosis. Ovarian cyst. Possibly will need ultrasound. Time of 1ST Reevaluation: 13:31 Reevaluation 1ST: Unchanged Time of 2ND Reevaluation: 15:46 Reevaluation 2ND: Unchanged Patient Education/Counseling: Diagnosis, Treatment, Prognosis Family Education/Counseling: No Family Present Departure 1 Departure Time of Disposition: 13:32 Impression: Primary Impression: Acute abdominal pain Additional Impressions: Hydronephrosis Qualified Codes: N13.30 - Unspecified hydronephrosis Right ovarian cyst Disposition: ADMITTED INPATIENT Admit to: Med Surg Condition: Guarded e-Prescriptions Nitrofurantoin Monohydrate Mac (Macrobid) 100 Mg Cap 100 MG PO BID for 7 Days, #14 CAP Prov: JIMBO BHATIA MD 11/18/24 Critical Care Note Critical Care Time?: No Stability Stability form required: No Heart Score Heart Score: Heart Score Response (Comments) Value History N/A 0 EKG N/A 0 Age N/A 0 Risk Factors N/A 0 Troponin N/A 0 Total 0 JIMBO BHATIA MD Nov 18, 2024 13:32
[2024-11-18 14:11] LABS: Basophils # (auto) 0.1 10 ^3/uL (0-0.2); Basophils % (auto) 0.8 % (0.0-2.0); Eosinophils # (auto) 0.3 10 ^3/uL (0-0.8); Lymphocytes % (auto) 31.7 % (10.0-50.0); Mean Corpuscular Hemoglobin 23.7 pg (28.0-32.0); Mean Corpuscular Hgb Conc. 31.6 g/dL (32.0-36.0); Mean Corpuscular Volume 75.1 fL (80.0-100.0); Monocytes # (auto) 0.5 10 ^3/uL (0-1.3); Monocytes % (auto) 7.3 % (0.0-12.0); Neutrophils # (auto) 3.5 10 ^3/uL (1.6-8.6); Neutrophils % (auto) 56.2 % (37.0-80.0); Nucleated Red Blood Cells % 0.1 %; Platelet Count (auto) 259 10^3/uL (140-450); Red Blood Cells 5.07 10^6/uL (4.0-5.20); Red Cell Distribution Width 17.2 % (11.8-14.3); White Blood Cell 6.2 10^3/uL (4.4-10.8)
[2024-11-18 14:20] LABS: Chloride 105 mmol/L (98-107); Potassium 4.2 mmol/L (3.5-5.1)
[2024-11-18 14:21] LABS: Anion Gap 9 (5-15); Calcium 9.7 mg/dL (8.7-10.4); Carbon Dioxide 22 mmol/L (20-31); Sodium 136 mmol/L (136-145)
[2024-11-18 14:26] LABS: BUN/Creatinine Ratio 9.1 (10.0-20.0); Glucose 91 mg/dL (74-106)
[2024-11-18 14:29] LABS: Blood Urea Nitrogen 9 mg/dL (9-23)
[2024-11-18 14:32] LABS: Urine Bacteria FEW /hpf (None Seen); Urine Blood 1+ /uL (Negative); Urine Clarity Clear (Clear); Urine Color Light-Yellow (Yellow); Urine Hyaline Cast FEW /lpf (0 - 2); Urine Protein, UAD Negative (Negative); Urine Specific Gravity 1.015 (1.001-1.035); Urine Squamous Epithelial Cell MOD /hpf (<5); Urine Urobilinogen Normal (Negative); Urine WBC 2 /HPF (0-5); Urine pH 5.5 (5.0-9.0)
[2024-11-18] MEDS ORDERED: NITR-87 PO (15:45)
--- NOTE | 2024-11-18 17:22 | DVH ---
Procedure: CT CT AB PEL WO CON-NO ORAL OR IV 11/18/2024 04:47 PM Indication: abdominalpain Comparison Study: CT CT AB PEL WO CON-NO ORAL OR IV on DOS: 08/30/24, CT CT AB PEL WO CON-NO ORAL OR IV on DOS: 11/25/23, CT ABD PELVIS WO CONTRAST on DOS: 05/19/21 Technique: Axial images were obtained and reformatted in coronal and sagittal planes. All CT scans at this medical facility are performed using dose modulation techniques as appropriate t o a performed exam including the following: Automated exposure control was utilized; adjustment of th e MA and/or KV according to patient size; and use of iterative reconstruction technique. CT Dose: CTDI volume is 14 mGy. Dose-length product is 683 mGy*cm FINDINGS: Lower Chest: Unremarkable. Hepatobiliary: Gallbladder is packed with calculi. No gallbladder wall thickening or pericholecystic fluid. Spleen: Unremarkable. Pancreas: Unremarkable. Adrenal Glands: Unremarkable. tract: The previously seen left ureteral stent is removed. There is moderate left hydronephrosis a nd hydroureter likely secondary to vesicoureteral reflux. The left kidney is normal in size. No urin francisca calculi are seen. Mild diffuse left ureteric wall thickening noted. Severe chronic atrophy of the right kidney due to severe hydro nephro ureter likely related to vesicoureteral reflux. No obstruct ing calculi are identified. The urinary bladder is unremarkable. GI tract: The stomach is grossly normal in appearance. No evidence of small bowel obstruction. Scatte red colonic diverticula are noted without evidence of diverticulitis. The appendix is normal. Lymphatics: No mesenteric, retroperitoneal or periportal lymphadenopathy. Vasculature: The abdominal aorta is normal in in caliber. Pelvic Organs: Enlarged myomatous uterus. Grossly stable bilateral ovarian cysts measuring up to 4.8 cm on the right side and 4.2 cm on the left side Bones/soft tissues: No acute abnormality. Other: None. IMPRESSION: 1. Interval removal of the left ureteral stent with moderate left hydronephrosis and hydroureter like ly secondary to vesicoureteral reflux. No obstructing calculi. There is diffuse circumferential urete ral wall thickening that could be related to chronic inflammation. An infiltrative mural lesion is u nlikely but not entirely excluded. 2. Severe chronic atrophy of the right kidney likely related to longstanding vesicoureteral reflux. Severe right hydro nephroureter noted. 3. Myomatous uterus complex multilocular bilateral ovarian cysts. Recommend correlation and follow-up with pelvic sonogram.
[2024-11-18] MEDS: HYDROcodone-ACET 10/325MG TAB PO ONE (17:39)
[2024-11-18 17:45] VITALS: PULSE 75; RESP 16; O2SAT 98
[2024-11-18] MEDS ORDERED: ONDANSETRON HCL 4 MG/2 ML VIAL IV PRN (18:00)
[2024-11-18] MEDS ORDERED: ACETAMINOPHEN 325 MG TAB PO PRN (18:00)
[2024-11-18] MEDS ORDERED: HYDROcodone-ACET 5/325MG TAB PO PRN (18:00)
--- NOTE | 2024-11-18 18:08 | DVHHP2 ---
History of Present Illness Reason for Visit: Abdominal pain History of Present Illness 78-year-old female with a known history of previous kidney stones status post left ureteric stent placement in the past, status post stent removal, atrophic right kidney presented to the hospital with the abdominal pain found to have circumferential wall thickening of the left ureter which could be chronic inflammation. Patient was seen and evaluated by me in the hallway currently complaining of bilateral pelvic pain has been. CT abdomen and pelvis was done which shows evidence of myomatous uterus with complex multilocular bilateral ovarian cyst. Patient was currently complaining of minimal pain in the bilateral flank area as well as lower abdominal pain. Denies any dysuria hematuria. Past Surgical History: Other (Status post left ureteric stent placement, status post removal.) Family History: None Smoke: No ALCOHOL: none Review of Systems Review of Systems Twelve review of system were negative except mentioned above. 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 Labs/Xrays Labs Test 11/18/24 13:52 11/18/24 13:49 Range/Units White Blood Count 6.2 4.4-10.8 10^3/uL Red Blood Count 5.07 4.0-5.20 10^6/uL Hemoglobin 12.0 L 12.2-16.2 g/dL Hematocrit 38.0 36.0-46.0 % Mean Corpuscular Volume 75.1 L 80.0-100.0 fL Mean Corpuscular Hemoglobin 23.7 L 28.0-32.0 pg Mean Corpuscular Hemoglobin Concent 31.6 L 32.0-36.0 g/dL Red Cell Distribution Width 17.2 H 11.8-14.3 % Platelet Count 259 140-450 10^3/uL Mean Platelet Volume 8.2 6.9-10.8 fL Neutrophils (%) (Auto) 56.2 37.0-80.0 % Lymphocytes (%) (Auto) 31.7 10.0-50.0 % Monocytes (%) (Auto) 7.3 0.0-12.0 % Eosinophils (%) (Auto) 4.0 0.0-7.0 % Basophils (%) (Auto) 0.8 0.0-2.0 % Neutrophils # (Auto) 3.5 1.6-8.6 10 ^3/uL Lymphocytes # (Auto) 2.0 0.4-5.4 10 ^3/uL Monocytes # (Auto) 0.5 0-1.3 10 ^3/uL Eosinophils # (Auto) 0.3 0-0.8 10 ^3/uL Basophils # (Auto) 0.1 0-0.2 10 ^3/uL Nucleated Red Blood Cells 0.1 % Sodium Level 136 136-145 mmol/L Potassium Level 4.2 3.5-5.1 mmol/L Chloride Level 105 98-107 mmol/L Carbon Dioxide Level 22 20-31 mmol/L Anion Gap 9 5-15 Blood Urea Nitrogen 9 9-23 mg/dL Creatinine 0.99 0.550-1.02 mg/dL Glomerular Filtration Rate Calc 74 >90 mL/min BUN/Creatinine Ratio 9.1 L 10.0-20.0 Serum Glucose 91 74-106 mg/dL Calcium Level 9.7 8.7-10.4 mg/dL Urine Color Light-yellow Yellow Urine Clarity Clear Clear Urine pH 5.5 5.0-9.0 Urine Specific [place] 1.015 1.001-1.035 Urine Protein Negative Negative Urine Ketones Negative Negative Urine Blood 1+ H Negative /uL Urine Nitrite Negative Negative Urine Bilirubin Negative Negative Urine Urobilinogen Normal Negative mg/dL Urine Leukocyte Esterase Negative Negative /uL Urine RBC 4 0 - 4 /hpf Urine Microscopic WBC 2 0-5 /HPF Urine Squamous Epithelial Cells Mod <5 /hpf Urine Bacteria Few H None Seen /hpf Urine Hyaline Casts Few 0 - 2 /lpf Urine Glucose Normal Normal mg/dL Assessment/Plan Assessment/Plan 38-year-old female with a past medical history of ureteric stone status post ureteric stent placement status post removal presented to the hospital with abdominal pain found to have 1. Abdominal pain 2. Previous history of left ureteric stent placement status post removal now circumferential wall thickening rule out malignancy 3. Bilateral pelvic cyst 4. Mm uterus 5. Atrophic right kidney -pain meds as needed, urology consultation Discharge plan Pelvic cultures Plan discussed with: Patient Date of Service: Nov 18, 2024 Billing Provider: ALLISON MÉNDEZ MD Common Visit Codes: NOT BILLABLE ALLISON MÉNDEZ MD Nov 18, 2024 18:07
[2024-11-18] MEDS: SODIUM CHLORIDE 0.9% 1,000 ML IV SCH (18:19)
[2024-11-18 19:40] VITALS: PULSE 77; RESP 12; O2SAT 98
--- NOTE | 2024-11-18 20:29 | DVH ---
INDICATION: Multiple ovarian cysts TECHNIQUE: Multiple real-time grayscale transabdominal sonographic images along with color and duplex Doppler of the uterus and ovaries were obtained. COMPARISON: US PELVIC on DOS: 08/30/24, US PELVIC on DOS: 11/25/23 FINDINGS: The uterus measures 9.5 x 4.3 x 7.5 cm. The endometrial stripe measures 0.34cm. In the fund us of the uterus is a 5.6 x 5 x 5.9 cm heterogeneous mass with vascularity in the periphery. This may represent a fibroid. The right ovary measures 7.7 x 6.9 x 6.7 cm. Complex mass in the right ovary measuring 6.5 x 4.5 x 5.7 cm. This may represent a hemorrhagic cyst. It appears cystic with debris. The left ovary measures 5.2 x 6.2 x 3.2 cm. 4.1 x 3.6 x 2.7 cm anechoic lesion left ovary most likel y follicle. Subsequent color and duplex Doppler interrogation of the ovaries demonstrated symmetric vascular flow to both ovaries, though this does not exclude the possibility of torsion due to the dual blood suppl y. IMPRESSION: 1. 5.6 x 5 x 5.9 cm fibroid in the uterine fundus. 2. 6.5 x 4.5 x 5.7 cm complex cystic mass right ovary with internal debris may represent a hemorrhag ic cyst. 3. 4.1 x 3.6 x 2.7 cm anechoic lesion left ovary. Most likely a cyst. HS:Y
[2024-11-18 23:26] VITALS: BP 127/82; PULSE 75; RESP 18; TEMP 98; O2SAT 97
[2024-11-19] VITALS (9 sets, daily range): BP systolic 95–129; BP diastolic 57–84; PULSE 62–87; RESP 16–18; TEMP 97.3–98; O2SAT 94–97
[2024-11-19] MEDS: MORPHINE SULFATE INJ 2 MG/ml SYRG IV PRN (00:15)
--- NOTE | 2024-11-19 17:40 | DVHPN2 ---
Subjective Patient is complaining of a pelvic pain. Reviewed: Care Plan Changes from previous H/P or p: No Changes Objective Vitals Vital Signs Date Time Temp Pulse Resp B/P (MAP) Pulse Ox O2 Delivery O2 Flow Rate FiO2 11/19/24 17:26 86 18 125/76 11/19/24 12:30 97.4 94 97.4 11/19/24 08:00 Room Air* 0 21 Intake/Output Intake and Output 11/19/24 07:00 Intake Total 600 ml Balance 600 ml Intake Oral 600 ml # Voids 6 Medications Current Medications Medications Dose Ordered Sig/River Route Start Time Stop Time Status Last Admin Dose Admin Sodium Chloride 1,000 ml @ 120 mls/hr Q8H20M IV 11/18/24 18:00 11/19/24 10:45 120 MLS/HR Acetaminophen/ Hydrocodone Bitart 1 tab Q4HP PRN PO 11/18/24 18:00 Ondansetron HCl 4 mg Q4HP PRN IV 11/18/24 18:00 Acetaminophen 650 mg Q6HP PRN PO 11/18/24 18:00 Morphine Sulfate 2 mg Q4HPRN PRN IV 11/18/24 18:00 11/19/24 10:53 2 MG Laboratory Results Laboratory Tests 11/18/24 13:52 Urinalysis Test 11/18/24 13:49 Urine Color Light-yellow (Yellow) Urine Clarity Clear (Clear) Urine pH 5.5 (5.0-9.0) Urine Specific [place] 1.015 (1.001-1.035) Urine Protein Negative (Negative) Urine Ketones Negative (Negative) Urine Blood 1+ /uL (Negative) H Urine Nitrite Negative (Negative) Urine Bilirubin Negative (Negative) Urine Urobilinogen Normal mg/dL (Negative) Urine Leukocyte Esterase Negative /uL (Negative) Urine RBC 4 /hpf (0 - 4) Urine Microscopic WBC 2 /HPF (0-5) Urine Squamous Epithelial Cells Mod /hpf (<5) Urine Bacteria Few /hpf (None Seen) H Urine Hyaline Casts Few /lpf (0 - 2) Urine Glucose Normal mg/dL (Normal) Assessment/Plan Assessment/Plan 38-year-old female with a past medical history of ureteric stone status post ureteric stent placement status post removal presented to the hospital with abdominal pain found to have 1. Abdominal pain 2. Previous history of left ureteric stent placement status post removal now circumferential wall thickening rule out malignancy /left ureteric stricture 3. Bilateral pelvic cyst 4. Myomatous uterus 5. Atrophic right kidney -pain meds as needed, urology consultation -gynecology consultation. Plan discussed with: Patient My Orders Orders - ALLISON MÉNDEZ MD Procedure Category Date Status Time Admit ADMIT 11/18/24 Transmitted 17:57 Code Status CODE 11/18/24 Transmitted 17:57 Sodium Chloride 0.9% PHA 11/18/24 In Process 18:00 Hydrocodone-Acet PHA 11/18/24 In Process 5/325mg Tab ([place] 18:00 Ondansetron Hcl PHA 11/18/24 In Process (Zofran) 18:00 Condition: Fair MEREDITH 11/18/24 In Process 17:57 Acetaminophen Tablet PHA 11/18/24 In Process (Tylenol Tablet) 18:00 Morphine Sulfate PHA 11/18/24 In Process Injection 18:00 Pelvic US 11/18/24 Resulted 17:57 * Urology Consult CONS 11/18/24 Transmitted 18:18 Regular Diet DIET 11/19/24 Transmitted Dinner * Clinical Aide Consultation CONS 11/19/24 Transmitted 17:31 Date of Service: Nov 19, 2024 Billing Provider: ALLISON MÉNDEZ MD Common Visit Codes: NOT BILLABLE ALLISON MÉNDEZ MD Nov 19, 2024 17:40
[2024-11-20] VITALS (8 sets, daily range): BP systolic 101–133; BP diastolic 66–91; PULSE 76–89; RESP 18; TEMP 97.8–98.4; O2SAT 93–100
--- NOTE | 2024-11-20 14:33 | DVHINCON2 ---
Date of service: Nov 20, 2024 Referring Physician hospitalist Reason for Consultation hydronephrosis History of Present Illness History Source: Patient, RN Notes, MD Notes, Old Records Exam Limitations: No limitations HPI 38 yo female known to urology service for non functional right kidney and left distal ureteral stricture s/p ureteral stenting and subsequent removal 09/10/24. She presented with abdominopelvic pain. Urology consulted for thickening of the left ureter. Home Meds No Active Prescriptions or Reported Meds Past Medical History Patient Family History: FH: hypertension FH: stomach ulcer H&P Exam Vital Signs Vital Signs Date Time Temp Pulse Resp B/P (MAP) Pulse Ox O2 Delivery O2 Flow Rate FiO2 11/20/24 09:00 98.2 81 18 111/69 (83) 96 98.2 11/20/24 08:00 Room Air* 0 21 Labs/Xrays Labs Test 11/18/24 13:52 11/18/24 13:49 Range/Units White Blood Count 6.2 4.4-10.8 10^3/uL Red Blood Count 5.07 4.0-5.20 10^6/uL Hemoglobin 12.0 L 12.2-16.2 g/dL Hematocrit 38.0 36.0-46.0 % Mean Corpuscular Volume 75.1 L 80.0-100.0 fL Mean Corpuscular Hemoglobin 23.7 L 28.0-32.0 pg Mean Corpuscular Hemoglobin Concent 31.6 L 32.0-36.0 g/dL Red Cell Distribution Width 17.2 H 11.8-14.3 % Platelet Count 259 140-450 10^3/uL Mean Platelet Volume 8.2 6.9-10.8 fL Neutrophils (%) (Auto) 56.2 37.0-80.0 % Lymphocytes (%) (Auto) 31.7 10.0-50.0 % Monocytes (%) (Auto) 7.3 0.0-12.0 % Eosinophils (%) (Auto) 4.0 0.0-7.0 % Basophils (%) (Auto) 0.8 0.0-2.0 % Neutrophils # (Auto) 3.5 1.6-8.6 10 ^3/uL Lymphocytes # (Auto) 2.0 0.4-5.4 10 ^3/uL Monocytes # (Auto) 0.5 0-1.3 10 ^3/uL Eosinophils # (Auto) 0.3 0-0.8 10 ^3/uL Basophils # (Auto) 0.1 0-0.2 10 ^3/uL Nucleated Red Blood Cells 0.1 % Sodium Level 136 136-145 mmol/L Potassium Level 4.2 3.5-5.1 mmol/L Chloride Level 105 98-107 mmol/L Carbon Dioxide Level 22 20-31 mmol/L Anion Gap 9 5-15 Blood Urea Nitrogen 9 9-23 mg/dL Creatinine 0.99 0.550-1.02 mg/dL Glomerular Filtration Rate Calc 74 >90 mL/min BUN/Creatinine Ratio 9.1 L 10.0-20.0 Serum Glucose 91 74-106 mg/dL Calcium Level 9.7 8.7-10.4 mg/dL Urine Color Light-yellow Yellow Urine Clarity Clear Clear Urine pH 5.5 5.0-9.0 Urine Specific [place] 1.015 1.001-1.035 Urine Protein Negative Negative Urine Ketones Negative Negative Urine Blood 1+ H Negative /uL Urine Nitrite Negative Negative Urine Bilirubin Negative Negative Urine Urobilinogen Normal Negative mg/dL Urine Leukocyte Esterase Negative Negative /uL Urine RBC 4 0 - 4 /hpf Urine Microscopic WBC 2 0-5 /HPF Urine Squamous Epithelial Cells Mod <5 /hpf Urine Bacteria Few H None Seen /hpf Urine Hyaline Casts Few 0 - 2 /lpf Urine Glucose Normal Normal mg/dL Assessment/Plan Problem List: (1) Atrophic kidney (2) Ureteral stricture, left (3) Hydronephrosis (4) Pelvic pain Plan monitor renal function urine culture cystoscopy with left retrograde pyelogram and stent placement TBA Plan discussed with: Patient, Other BASILIO BARONE NP Nov 20, 2024 14:33
--- NOTE | 2024-11-20 16:03 | DVHPN2 ---
Subjective Overnight events noted. Reviewed: Care Plan Changes from previous H/P or p: No Changes Objective Vitals Vital Signs Date Time Temp Pulse Resp B/P (MAP) Pulse Ox O2 Delivery O2 Flow Rate FiO2 11/20/24 13:00 97.8 89 18 115/83 (94) 97 97.8 11/20/24 08:00 Room Air* 0 21 Intake/Output Intake and Output 11/20/24 07:00 Intake Total 1400 ml Balance 1400 ml Intake Oral 1400 ml # Voids 12 Medications Current Medications Medications Dose Ordered Sig/River Route Start Time Stop Time Status Last Admin Dose Admin Sodium Chloride 1,000 ml @ 120 mls/hr Q8H20M IV 11/18/24 18:00 11/20/24 11:40 120 MLS/HR Acetaminophen/ Hydrocodone Bitart 1 tab Q4HP PRN PO 11/18/24 18:00 Ondansetron HCl 4 mg Q4HP PRN IV 11/18/24 18:00 Acetaminophen 650 mg Q6HP PRN PO 11/18/24 18:00 Morphine Sulfate 2 mg Q4HPRN PRN IV 11/18/24 18:00 11/19/24 19:10 2 MG Laboratory Results Laboratory Tests 11/18/24 13:52 Urinalysis Test 11/18/24 13:49 Urine Color Light-yellow (Yellow) Urine Clarity Clear (Clear) Urine pH 5.5 (5.0-9.0) Urine Specific [place] 1.015 (1.001-1.035) Urine Protein Negative (Negative) Urine Ketones Negative (Negative) Urine Blood 1+ /uL (Negative) H Urine Nitrite Negative (Negative) Urine Bilirubin Negative (Negative) Urine Urobilinogen Normal mg/dL (Negative) Urine Leukocyte Esterase Negative /uL (Negative) Urine RBC 4 /hpf (0 - 4) Urine Microscopic WBC 2 /HPF (0-5) Urine Squamous Epithelial Cells Mod /hpf (<5) Urine Bacteria Few /hpf (None Seen) H Urine Hyaline Casts Few /lpf (0 - 2) Urine Glucose Normal mg/dL (Normal) Assessment/Plan Assessment/Plan 38-year-old female with a past medical history of ureteric stone status post ureteric stent placement status post removal presented to the hospital with abdominal pain found to have 1. Abdominal pain 2. Previous history of left ureteric stent placement status post removal now circumferential wall thickening rule out malignancy 3. Bilateral pelvic cyst 4. Mm uterus 5. Atrophic right kidney -pain meds as needed, urology consultation Discharge plan Pelvic cultures Plan discussed with: Patient My Orders Orders - ALLISON MÉNDEZ MD Procedure Category Date Status Time Regular Diet DIET 11/19/24 Transmitted Dinner * Degree Clerk Consultation CONS 11/19/24 Transmitted 17:31 Date of Service: Nov 20, 2024 Billing Provider: ALLISON MÉNDEZ MD Common Visit Codes: NOT BILLABLE ALLISON MÉNDEZ MD Nov 20, 2024 16:03
[2024-11-21] VITALS (8 sets, daily range): BP systolic 119–138; BP diastolic 63–90; PULSE 80–86; RESP 17–20; TEMP 97.7–98.7; O2SAT 95–98
--- NOTE | 2024-11-21 10:22 | DVH ---
US KIDNEY HISTORY: hydronephrosis COMPARISON: US KIDNEY on DOS: 11/25/23 TECHNIQUE: Transverse and longitudinal grayscale and color doppler images were obtained of the kidney s and bladder. FINDINGS: Right kidney: Size: Too large to measure Cortical thickness: Thin Echogenicity: Normal Stones: None Masses: None Hydronephrosis: Yes Ureters: Not well visualized. Other: None Left kidney: Size: 11.8 cm Cortical thickness: Normal Echogenicity: Normal Stones: None Masses: None Hydronephrosis: Yes Ureters: Not well visualized. Other: None Bladder: Normal Other: None. IMPRESSION: Very severe right hydronephrosis. Moderate left hydronephrosis.
[2024-11-21] MEDS ORDERED: DOCUSATE SOD 100 MG CAP PO PRN (16:30)
[2024-11-21 16:51] LABS: Potassium 4.4 mmol/L (3.5-5.1); Sodium 139 mmol/L (136-145)
[2024-11-21 16:52] LABS: Anion Gap 7 (5-15); Calcium 8.8 mg/dL (8.7-10.4); Carbon Dioxide 23 mmol/L (20-31)
--- NOTE | 2024-11-21 16:53 | DVHPN2 ---
Progress Note - Dictate Date Seen: Nov 21, 2024 Medical Necessity Reason Pt with a Central, PICC or Fol: No vital signs Vital Sign Date Time Temp Pulse Resp B/P (MAP) Pulse Ox O2 Delivery O2 Flow Rate FiO2 11/21/24 16:13 86 18 123/82 11/21/24 13:00 98.2 96 98.2 11/21/24 08:00 Room Air* 0 21 Total Intake and Output 11/20/24 11/20/24 11/21/24 15:00 23:00 07:00 Intake Total 1360 ml 120 ml Balance 1360 ml 120 ml medications Current Medications Medications Dose Ordered Sig/River Route Start Time Stop Time Status Last Admin Dose Admin Sodium Chloride 1,000 ml @ 120 mls/hr Q8H20M IV 11/18/24 18:00 11/21/24 14:08 120 MLS/HR Acetaminophen/ Hydrocodone Bitart 1 tab Q4HP PRN PO 11/18/24 18:00 Ondansetron HCl 4 mg Q4HP PRN IV 11/18/24 18:00 Acetaminophen 650 mg Q6HP PRN PO 11/18/24 18:00 Morphine Sulfate 2 mg Q4HPRN PRN IV 11/18/24 18:00 11/21/24 16:13 2 MG Docusate Sodium 100 mg BIDPRN PRN PO 11/21/24 16:30 UNV Sennosides 8.6 mg HS PO 11/21/24 22:00 UNV laboratory and microbiology Laboratory Tests 11/18/24 13:52 Test 11/21/24 16:17 Range/Units Serum Glucose Pending Assessment/Plan NPO after midnight possible cysto and stent placement tomorrow Problems(with codes): (1) Ureteral stricture, left (2) Atrophic kidney (3) Pelvic pain (4) Right ovarian cyst (5) Hydronephrosis Plan discussed with: Patient, Other Total Time (mins): 20 BASILIO BARONE NP Nov 21, 2024 16:53
[2024-11-21 16:57] LABS: BUN/Creatinine Ratio 10.1 (10.0-20.0); Blood Urea Nitrogen 11 mg/dL (9-23); Chloride 109 mmol/L (98-107); Glucose 104 mg/dL (74-106)
--- NOTE | 2024-11-21 17:39 | DVHPN2 ---
Subjective Overnight events noted. Reviewed: Care Plan Changes from previous H/P or p: No Changes Objective Vitals Vital Signs Date Time Temp Pulse Resp B/P (MAP) Pulse Ox O2 Delivery O2 Flow Rate FiO2 11/21/24 16:13 86 18 123/82 11/21/24 13:00 98.2 96 98.2 11/21/24 08:00 Room Air* 0 21 Intake/Output Intake and Output 11/21/24 07:00 Intake Total 1480 ml Balance 1480 ml Intake Oral 1120 ml IV Total 360 ml # Voids 9 Medications Current Medications Medications Dose Ordered Sig/River Route Start Time Stop Time Status Last Admin Dose Admin Sodium Chloride 1,000 ml @ 120 mls/hr Q8H20M IV 11/18/24 18:00 11/21/24 14:08 120 MLS/HR Acetaminophen/ Hydrocodone Bitart 1 tab Q4HP PRN PO 11/18/24 18:00 Ondansetron HCl 4 mg Q4HP PRN IV 11/18/24 18:00 Acetaminophen 650 mg Q6HP PRN PO 11/18/24 18:00 Morphine Sulfate 2 mg Q4HPRN PRN IV 11/18/24 18:00 11/21/24 16:13 2 MG Docusate Sodium 100 mg BIDPRN PRN PO 11/21/24 16:30 Sennosides 8.6 mg HS PO 11/21/24 22:00 Laboratory Results Laboratory Tests 11/18/24 13:52 11/21/24 16:17 Chemistry Test 11/21/24 16:17 Calcium Level 8.8 mg/dL (8.7-10.4) Urinalysis Test 11/18/24 13:49 Urine Color Light-yellow (Yellow) Urine Clarity Clear (Clear) Urine pH 5.5 (5.0-9.0) Urine Specific [place] 1.015 (1.001-1.035) Urine Protein Negative (Negative) Urine Ketones Negative (Negative) Urine Blood 1+ /uL (Negative) H Urine Nitrite Negative (Negative) Urine Bilirubin Negative (Negative) Urine Urobilinogen Normal mg/dL (Negative) Urine Leukocyte Esterase Negative /uL (Negative) Urine RBC 4 /hpf (0 - 4) Urine Microscopic WBC 2 /HPF (0-5) Urine Squamous Epithelial Cells Mod /hpf (<5) Urine Bacteria Few /hpf (None Seen) H Urine Hyaline Casts Few /lpf (0 - 2) Urine Glucose Normal mg/dL (Normal) Assessment/Plan Assessment/Plan 38-year-old female with a past medical history of ureteric stone status post ureteric stent placement status post removal presented to the hospital with abdominal pain found to have 1. Abdominal pain 2. Previous history of left ureteric stent placement status post removal now circumferential wall thickening rule out malignancy /left ureteric stricture 3. Bilateral pelvic cyst 4. Myomatous uterus 5. Atrophic right kidney -pain meds as needed, urology consultation -gynecology consultation. Plan discussed with: Patient My Orders Orders - ALLISON MÉNDEZ MD Procedure Category Date Status Time Docusate Sodium PHA 11/21/24 In Process Capsule (Colace 16:30 Senna Pod Tablet PHA 11/21/24 In Process (Senokot Tablet) 22:00 Date of Service: Nov 21, 2024 Billing Provider: ALLISON MÉNDEZ MD Common Visit Codes: NOT BILLABLE ALLISON MÉNDEZ MD Nov 21, 2024 17:39
[2024-11-21] MEDS: SENNA 8.6 MG TAB PO SCH (21:24)
[2024-11-22] VITALS (7 sets, daily range): BP systolic 97–135; BP diastolic 63–77; PULSE 62–104; RESP 16–20; TEMP 36.5; O2SAT 97–99
[2024-11-22] MEDS: FUROSEMIDE 40 MG/4 ML VIAL IV ONE (09:00)
[2024-11-22] MEDS: FUROSEMIDE 40 MG/4 ML VIAL ONE (11:16)
--- NOTE | 2024-11-22 12:46 | DVHPN2 ---
Progress Note - Dictate Date Seen: Nov 22, 2024 Medical Necessity Reason Pt with a Central, PICC or Fol: No Subjective off unit for renal scan vital signs Vital Sign Date Time Temp Pulse Resp B/P (MAP) Pulse Ox O2 Delivery O2 Flow Rate FiO2 11/22/24 11:16 118/70 11/22/24 09:00 98.1 62 16 99 98.1 11/22/24 08:00 Room Air* 0 21 Total Intake and Output 11/21/24 11/21/24 11/22/24 15:00 23:00 07:00 Intake Total 1000 ml 1155 ml 1650 ml Output Total 1000 ml Balance 1000 ml 1155 ml 650 ml medications Current Medications Medications Dose Ordered Sig/River Route Start Time Stop Time Status Last Admin Dose Admin Sodium Chloride 1,000 ml @ 120 mls/hr Q8H20M IV 11/18/24 18:00 11/22/24 06:32 120 MLS/HR Acetaminophen/ Hydrocodone Bitart 1 tab Q4HP PRN PO 11/18/24 18:00 Ondansetron HCl 4 mg Q4HP PRN IV 11/18/24 18:00 Acetaminophen 650 mg Q6HP PRN PO 11/18/24 18:00 Morphine Sulfate 2 mg Q4HPRN PRN IV 11/18/24 18:00 11/21/24 16:13 2 MG Docusate Sodium 100 mg BIDPRN PRN PO 11/21/24 16:30 Sennosides 8.6 mg HS PO 11/21/24 22:00 11/21/24 21:24 8.6 MG laboratory and microbiology Laboratory Tests 11/21/24 16:17 11/18/24 13:52 Test 11/21/24 16:17 Range/Units Serum Glucose 104 74-106 mg/dL Assessment/Plan if no left obstruction on renal scan ok to d/c if obstruction confirmed the cysto and stent placement will be arranged Plan discussed with: Patient, Other BASILIO BARONE NP Nov 22, 2024 12:46
--- NOTE | 2024-11-22 12:46 | DVH ---
Procedure: [place] NM MAG3 RENAL SCAN Exam Date: 11/22/2024 10:40 AM. Clinical History: r/o obstruction Comparison Study: NM NM MAG3 RENAL SCAN on DOS: 11/28/23. Nuclear Medicine Renal Scan with Lasix. Technique: Following the intravenous administration of 10.1 mCi of technetium 99m labeled MAG-3 , mack w images were acquired in one second intervals. This was followed by functional imaging of the kidn eys in the posterior projection which were obtained at 20 seconds intervals reconstructed into 2 min [place] frames for a total of 34 minutes. 40 mg of Lasix were given IV at the 10 minute magali. Flow cur ves and functional renogram curves were generated. Split function data were generated from the firs t three minutes of the study. Findings: The flow study reveals prompt visualization of both kidneys with normal flow bilaterally. The kidneys are normal size, location and contour. The functional data was obtained with the renal pelvis included in the region of interest: Left: Peak time on the left is 3.5 minutes. Peak to 1/2 peak on the left is 3.0 minutes. Diuretic T 1/2 on the left is 6.5 minutes. Right: Peak time on the right is 1.5 minutes. Peak to 1/2 peak on the right is 13 minutes. Diuretic T 1/2 on the right is 8.5 minutes. Split function is 93 % on the left and 7 % on the right. IMPRESSION: Partial left renal obstruction. Minimal functionality of the right kidney.
--- NOTE | 2024-11-22 16:28 | DVHDS2 ---
Discharge Summary Date of Admission Nov 18, 2024 at 17:57 Date of Discharge: Nov 22, 2024 Labs/Diagnostic Data: Laboratory Results Test 11/21/24 16:17 11/18/24 13:52 11/18/24 13:49 Sodium Level 139 mmol/L (136-145) Potassium Level 4.4 mmol/L (3.5-5.1) Chloride Level 109 mmol/L (98-107) Carbon Dioxide Level 23 mmol/L (20-31) Anion Gap 7 (5-15) Blood Urea Nitrogen 11 mg/dL (9-23) Creatinine 1.09 mg/dL (0.550-1.02) Glomerular Filtration Rate Calc 66 mL/min (>90) BUN/Creatinine Ratio 10.1 (10.0-20.0) Serum Glucose 104 mg/dL (74-106) Calcium Level 8.8 mg/dL (8.7-10.4) White Blood Count 6.2 10^3/uL (4.4-10.8) Red Blood Count 5.07 10^6/uL (4.0-5.20) Hemoglobin 12.0 g/dL (12.2-16.2) Hematocrit 38.0 % (36.0-46.0) Mean Corpuscular Volume 75.1 fL (80.0-100.0) Mean Corpuscular Hemoglobin 23.7 pg (28.0-32.0) Mean Corpuscular Hemoglobin Concent 31.6 g/dL (32.0-36.0) Red Cell Distribution Width 17.2 % (11.8-14.3) Platelet Count 259 10^3/uL (140-450) Mean Platelet Volume 8.2 fL (6.9-10.8) Neutrophils (%) (Auto) 56.2 % (37.0-80.0) Lymphocytes (%) (Auto) 31.7 % (10.0-50.0) Monocytes (%) (Auto) 7.3 % (0.0-12.0) Eosinophils (%) (Auto) 4.0 % (0.0-7.0) Basophils (%) (Auto) 0.8 % (0.0-2.0) Neutrophils # (Auto) 3.5 10 ^3/uL (1.6-8.6) Lymphocytes # (Auto) 2.0 10 ^3/uL (0.4-5.4) Monocytes # (Auto) 0.5 10 ^3/uL (0-1.3) Eosinophils # (Auto) 0.3 10 ^3/uL (0-0.8) Basophils # (Auto) 0.1 10 ^3/uL (0-0.2) Nucleated Red Blood Cells 0.1 % Urine Color Light-yellow (Yellow) Urine Clarity Clear (Clear) Urine pH 5.5 (5.0-9.0) Urine Specific [employer] 1.015 (1.001-1.035) Urine Protein Negative (Negative) Urine Ketones Negative (Negative) Urine Blood 1+ /uL (Negative) Urine Nitrite Negative (Negative) Urine Bilirubin Negative (Negative) Urine Urobilinogen Normal mg/dL (Negative) Urine Leukocyte Esterase Negative /uL (Negative) Urine RBC 4 /hpf (0 - 4) Urine Microscopic WBC 2 /HPF (0-5) Urine Squamous Epithelial Cells Mod /hpf (<5) Urine Bacteria Few /hpf (None Seen) Urine Hyaline Casts Few /lpf (0 - 2) Urine Glucose Normal mg/dL (Normal) Other Laboratory Tests 11/21/24 16:17 11/18/24 13:52 Brief Hx & Hospital Course: 38-year-old female with a past medical history of ureteric stone status post ureteric stent placement status post removal presented to the hospital with abdominal pain found to have circumferential wall thickening likely left ureteric stricture. Urology was consulted patient was initially planned for any intervention. But needle scan was done which shows only partial obstruction of the left kidney, urology cleared the patient to be discharged with close follow up as an outpatient with a repeat BMP in one week. Patient also having incidental finding of ovarian cyst and pelvic cyst. Gynecology will be consulted before patient discharged home. Currently understand verbalized understanding and agreeable to plan Condition at Discharge: Stable Final Diagnosis/Problems List 38-year-old female with a past medical history of ureteric stone status post ureteric stent placement status post removal presented to the hospital with abdominal pain found to have 1. Abdominal pain 2. Previous history of left ureteric stent placement status post removal now circumferential wall thickening rule out malignancy /left ureteric stricture 3. Bilateral pelvic cyst 4. Myomatous uterus 5. Atrophic right kidney Discharge Disposition: Home SNF Discharge Will this Physician continue t: No Discharge Instruct/Medications Diet: Cardiac 2g Na,low cholest Activity: No Restrictions, As Tolerated Follow Up/Referral: Follow up with the PCP in one week Follow up with Urology with a repeat BMP in one week Follow up with Gynecology in one week Medications: Resume home medications Discharge Statement: "Patient was advised to return to the ER or call 911 if any headaches, dizziness, shortness of breath, chest pain, abdominal pain, bleeding, fevers, or worsening of medical condition. Patient was counseled about treatment plan, medications, possible side effects, patientverbalized understanding. All questions were answered to the best of my ability. This discharge took greater then 30 minutes in planning, reviewing documentation, counseling the patient, and discussing with other team members." ASSESSMENT ASSESSMENT Assessment 38-year-old female with a past medical history of ureteric stone status post ureteric stent placement status post removal presented to the hospital with abdominal pain found to have 1. Abdominal pain 2. Previous history of left ureteric stent placement status post removal now circumferential wall thickening rule out malignancy /left ureteric stricture 3. Bilateral pelvic cyst 4. Myomatous uterus 5. Atrophic right kidney Date of Service: Nov 22, 2024 Billing Provider: ALLISON MÉNDEZ MD Common Visit Codes: NOT BILLABLE ALLISON MÉNDEZ MD Nov 22, 2024 16:28
--- NOTE | 2024-11-22 16:40 | DVHINCON2 ---
Date of service: Nov 22, 2024 Reason for Consultation Uterine fibroids, B/L ovarian cysts History of Present Illness HPI 38y SAB 1 LMP 11/14/24 Admitted with pelvic pain, flank pain, history of nephrolithiasis and renal stent placement in the past Incidental finding on pelvic US and CT scan showing a fundal uterine fibroid 5.9cm and B/L ovarian cysts, up to 5cm suggestive of hemorrhagic cyst There is no evidence of ovarian torsion. Patient endorses history of being on control pills in the past due to recurrent follicular ovarian cysts Hx of ovarian cyst "drained" by laparoscopy. Denies any fever, cramps, or heavy menstrual bleeding. Cycles are regular every 28d with 3-4 days of flow. Last PAP 2 yr ago, WNL Denies any prior hx of STI's. PSHx: C/Section x 1 (twins), cystoscopy, ureteral stent placement, Right nephrectomy Meds: See list Allergies: NKDA Social Hx: . NO EtOH, drug or tobacco use. Family hx: Denies hx of Breast, ovarian or cervical cancer. Home Meds No Active Prescriptions or Reported Meds Past Medical History Patient Family History: FH: hypertension FH: stomach ulcer Review of Systems Constitutional: No symptom reported Ears, Nose, & Throat: No symptom reported Eyes: No symptom reported Pulmonary/Respiratory: No symptom reported Cardiovascular: No symptom reported Gastrointestinal: Abdominal Pain Genitourinary: Pain Musculoskeletal: No symptom reported Skin: No symptom reported Psychiatric: No symptom reported Endocrine: No symptom reported Hemotologic/Lymphatic: No symptom reported H&P Exam Vital Signs Vital Signs Date Time Temp Pulse Resp B/P (MAP) Pulse Ox O2 Delivery O2 Flow Rate FiO2 11/22/24 13:00 97.6 77 18 135/72 (93) 98 97.6 11/22/24 08:00 Room Air* 0 21 General Appeara: Well developed, Well nourished, Normal Appearance Head Exam: Normal inspection Neck Exam: Normal inspection Eye Exam: bilateral eye PERRL Pulmonary/Respiratory: Normal inspection Cardiovascular/Chest: Normal inspection Abdominal Exam: Normal bowel sounds, Soft, No tenderness, No hepatospenomegaly Pelvic Exam: Not done W[employer]ER Exam: Normal hearing Motor/Sensory: Normal sensory function Labs/Xrays Labs Test 11/21/24 16:17 11/18/24 13:52 11/18/24 13:49 Range/Units Sodium Level 139 136-145 mmol/L Potassium Level 4.4 3.5-5.1 mmol/L Chloride Level 109 H 98-107 mmol/L Carbon Dioxide Level 23 20-31 mmol/L Anion Gap 7 5-15 Blood Urea Nitrogen 11 9-23 mg/dL Creatinine 1.09 H 0.550-1.02 mg/dL Glomerular Filtration Rate Calc 66 >90 mL/min BUN/Creatinine Ratio 10.1 10.0-20.0 Serum Glucose 104 74-106 mg/dL Calcium Level 8.8 8.7-10.4 mg/dL White Blood Count 6.2 4.4-10.8 10^3/uL Red Blood Count 5.07 4.0-5.20 10^6/uL Hemoglobin 12.0 L 12.2-16.2 g/dL Hematocrit 38.0 36.0-46.0 % Mean Corpuscular Volume 75.1 L 80.0-100.0 fL Mean Corpuscular Hemoglobin 23.7 L 28.0-32.0 pg Mean Corpuscular Hemoglobin Concent 31.6 L 32.0-36.0 g/dL Red Cell Distribution Width 17.2 H 11.8-14.3 % Platelet Count 259 140-450 10^3/uL Mean Platelet Volume 8.2 6.9-10.8 fL Neutrophils (%) (Auto) 56.2 37.0-80.0 % Lymphocytes (%) (Auto) 31.7 10.0-50.0 % Monocytes (%) (Auto) 7.3 0.0-12.0 % Eosinophils (%) (Auto) 4.0 0.0-7.0 % Basophils (%) (Auto) 0.8 0.0-2.0 % Neutrophils # (Auto) 3.5 1.6-8.6 10 ^3/uL Lymphocytes # (Auto) 2.0 0.4-5.4 10 ^3/uL Monocytes # (Auto) 0.5 0-1.3 10 ^3/uL Eosinophils # (Auto) 0.3 0-0.8 10 ^3/uL Basophils # (Auto) 0.1 0-0.2 10 ^3/uL Nucleated Red Blood Cells 0.1 % Urine Color Light-yellow Yellow Urine Clarity Clear Clear Urine pH 5.5 5.0-9.0 Urine Specific [employer] 1.015 1.001-1.035 Urine Protein Negative Negative Urine Ketones Negative Negative Urine Blood 1+ H Negative /uL Urine Nitrite Negative Negative Urine Bilirubin Negative Negative Urine Urobilinogen Normal Negative mg/dL Urine Leukocyte Esterase Negative Negative /uL Urine RBC 4 0 - 4 /hpf Urine Microscopic WBC 2 0-5 /HPF Urine Squamous Epithelial Cells Mod <5 /hpf Urine Bacteria Few H None Seen /hpf Urine Hyaline Casts Few 0 - 2 /lpf Urine Glucose Normal Normal mg/dL Assessment/Plan Admitting Diagnosis: Uterine fibroids up to 6cm B/L ovarian cysts, complex. May represent hemorrhagic ovarian cyst Hx of Nephrolithiasis w/ acute pelvic /abdominal pain Plan No acute medical assistant ob gyn intervention indicated at this time Suggest outpatient [facility] clinic follow up A range of treatment options for uterine fibroids (myomectomy, Acessa Fibroid RF ablation, Lupron Tx) discussed w/ patient vs Hysterectomy Recommend starting combo OCP's x 3 months if no medical contraindications exist, and repeat Pelvic US for ovarian cyst F/U in 3 months If Cysts persistant, would recommend laparoscopic ovarian cystectomy Thank you for allowing me to participate in the care of this patient FINANCIAL PROFESSIONAL WILL SIGN off. Plan discussed with: Patient Date of Service: Nov 22, 2024 Billing Provider: CHIVO DRUMMOND DO Common Visit Codes: CONSULT ONLY Consultation Codes: [id number] CONSULT <60MIN CHIVO DRUMMOND DO Nov 22, 2024 16:40
== END 2024-11-22 18:30 | disposition home or self-care (01) | DRG 465 ==
LOC: EDBD 13:27 → ER 13:41 → OVERFLOW 17:57 → WEST WING 23:26
PROVIDERS: ADMIT Internal Medicine; ATTEND Internal Medicine
DX: N13.1 Hydronephrosis with ureteral stricture, not elsewhere classified (principal); N83.201 Unspecified ovarian cyst, right side; N26.1 Atrophy of kidney (terminal); N83.202 Unspecified ovarian cyst, left side; N94.89 Other specified conditions associated with female genital organs and menstrual cycle; Z87.11 Personal history of peptic ulcer disease; Z87.442 Personal history of urinary calculi; Z90.5 Acquired absence of kidney; Z98.891 History of uterine scar from previous surgery; Z79.899 Other long term (current) drug therapy
CPT/HCPCS: 36415; 74176; 76775; 76856; 78707; 80048; 81001; 85025; G0378